=== PATIENT | male | born 1945 | race Caucasian/White ===

== ENCOUNTER 2017-04-27 09:57 | Emergency (ER) | payer OTHER ==
[~2017-04-27] VITALS: Ht 175.3 cm; Wt 96.6 kg
[2017-04-27] MEDS ORDERED: ASPIRIN325 PO (10:18)
[2017-04-27] MEDS ORDERED: SINGULAIR 10 MG10 M1 PO (10:18)
[2017-04-27] MEDS ORDERED: FINASTERIDE5 MG PO (10:18)
[2017-04-27 11:33] VITALS: BP 144/92
== END 2017-04-27 11:25 | disposition home or self-care (01) ==
LOC: ER 09:57
DX: S93.401A Sprain of unspecified ligament of right ankle, initial encounter (principal); S93.601A Unspecified sprain of right foot, initial encounter; Z87.891 Personal history of nicotine dependence; W11.XXXA Fall on and from ladder, initial encounter; Y93.89 Activity, other specified; Y92.89 Other specified places as the place of occurrence of the external cause; Y99.9 Unspecified external cause status

== ENCOUNTER → 2019-02-09 | Outpatient (CLI) | payer OTHER ==
[~2019-02-09] MED LIST: ASPIRIN325 PO; FINASTERIDE5 MG PO; SINGULAIR 10 MG10 M1 PO
== END ==
LOC: CAT 12:06
DX: Z13.6 Encounter for screening for cardiovascular disorders (principal); E78.00 Pure hypercholesterolemia, unspecified; Z82.49 Family history of ischemic heart disease and other diseases of the circulatory system

== ENCOUNTER → 2019-02-19 | Outpatient (CLI) | payer OTHER ==
--- NOTE | 2019-02-19 11:05 | 2DMMODE ---
[facility] [place] [place] [address] 2 D/M-MODE ECHOCARDIOGRAM Name: BLAIRASHLEY Bacilio Room #: REG [facility]#: [id number] ������������� Admission: 02/19/19 ������������� Attend Phys: Adrián Gay, Discharge: ��� ������������� ��� Date of : 41 Date of Service: 02/19/19 1104 �� Report #: [id number] �������� ��������������������������������������������[id number] THIS REPORT FOR: //name// APPROVED REPORT Study performed: 02/19/2019 10:07:36 EXAM: Comprehensive 2D, Doppler, and color-flow Echocardiogram Patient Location: Out-Patient Status: routine BSA: 2.14 HR: 71 bpm BP: 108/84 mmHg Rhythm: NSR Other Information Study Quality: Fair Indications Dyspnea 2D Dimensions RVDd: 33.94 mm IVSd: 10.62 (7-11mm) LVOT Diam: 24.00 (18-24mm) LVDd: 45.29 mm PWd: 11.06 (7-11mm) Ascending Ao: 44.88 (22-36mm) LVDs: 34.70 (25-40mm) Aortic Root: 44.52 mm Volumes Left Atrial Volume (Systole) Single Plane 4CH: 51.49 mL Single Plane 2CH: 56.77 mL LA ESV Index: 27.00 mL/m2 Aortic Valve AoV Peak Jaciel.: 2.54 m/s AO Peak Gr.: 25.88 mmHg LVOT Max P.05 mmHg AO Mean Gr.: 13.87 mmHg AO V2 Mean: 1.77 m/s LVOT Max V: 1.01 m/s AO V2 VTI: 63.05 cm DANILO Vmax: 1.79 cm2 Mitral Valve E/A Ratio: 0.9 [facility] [address] [place] [address] 2 D/M-MODE ECHOCARDIOGRAM Name: ASHLEY PINTO Room #: [facility]#: [id number] ������������� Admission: 02/19/19 ������������� Attend Phys: Adrián Gay, Discharge: ��� ������������� ��� Date of : 41 Date of Service: 02/19/19 1104 �� Report #: [id number] �������� ��������������������������������������������[id number] MV Decel. Time: 292.51 ms MV E Max Jaciel.: 0.78 m/s MV A Jaciel.: 0.90 m/s MV PHT: 84.83 ms IVRT: 83.04 ms Pulmonary Valve PV Peak Jaciel.: 1.28 m/s PV Peak Gr.: 6.51 mmHg Pulmonary Vein P Vein S: 0.61 m/s P Vein A: 0.29 m/s P Vein D: 0.49 m/s P Vein A Dur.: 110.7 msec P Vein S/D Ratio: 1.24 Tricuspid Valve TR Peak Jaciel.: 2.31 m/s RAP Estimate: 5.00 mmHg TR Peak Gr.: 21.36 mmHg PA Pressure: 26.00 mmHg Left Ventricle The left ventricle is normal size. There is normal LV segmental wall motion. Mild basal septal hypertrophy is present. Left ventricular systolic function is normal. LVEF is 55-60%. Mild diastolic dysfunction is present (impaired relaxation pattern). Right Ventricle The right ventricle is normal size. The right ventricular systolic function is normal. Atria The left atrium size is normal. The right atrium size is normal. Aortic Valve The aortic valve is difficult to visualize but appears to possibly be bicuspid. Mild calcification noted. Mild aortic regurgitation. There is mild valvular aortic stenosis. Calculated aortic valve area is 1.8 cm2 with maximum pressure gradient of 26 mmHg and mean pressure gradient of 14 mmHg. Mitral Valve The mitral valve is normal in structure. Trace mitral regurgitation. Tricuspid Valve The tricuspid valve is normal in structure. Trace tricuspid [facility] [address] [place] [address] 2 D/M-MODE ECHOCARDIOGRAM Name: ASHLEY PINTO Bacilio Room #: REG [facility]#: [id number] ������������� Admission: 02/19/19 ������������� Attend Phys: Adrián Gay, Discharge: ��� ������������� ��� Date of : 41 Date of Service: 02/19/19 1104 �� Report #: [id number] �������� ��������������������������������������������[id number] regurgitation. Estimated PAP is 26mmHg. Pulmonic Valve The pulmonary valve is normal in structure. Trace pulmonic regurgitation. Great Vessels Both the aortic root and ascending aorta are moderately dilated at 4.5cm. IVC is normal in size and collapses >50% with inspiration. Pericardium There is no pericardial effusion. <Conclusion> The left ventricle is normal size. LVEF is 55-60%. The aortic valve is difficult to visualize but appears to possibly be bicuspid. Mild calcification noted. Mild aortic regurgitation. There is mild valvular aortic stenosis. Calculated aortic valve area is 1.8 cm2 with maximum pressure gradient of 26 mmHg and mean pressure gradient of 14 mmHg. The mitral valve is normal in structure. Trace mitral regurgitation. The tricuspid valve is normal in structure. Trace tricuspid regurgitation. Estimated PAP is 26mmHg. The pulmonary valve is normal in structure. Trace pulmonic regurgitation. There is no pericardial effusion. Both the aortic root and ascending aorta are moderately dilated at 4.5cm. ��������������������������������������������� <ELECTRONICALLY SIGNED> ���������������������������������������� By: Huang Dale MD ��������������������������������������������� 02/19/19 1104 1104 1104 Huang Dale MD /INF
== END ==
LOC: CV 09:53
DX: I35.1 Nonrheumatic aortic (valve) insufficiency (principal)

== ENCOUNTER 2021-05-14 18:56 | Emergency (ER) | payer OTHER ==
[~2021-05-14] VITALS: Ht 177.8 cm; Wt 90.7 kg
--- NOTE | ~2021-05-14 | EMS ---
[facility] [address] [place] [address] EMS Patient Care Report Name: ASHLEY PINTO Room #: REG [facility] Carter#: [id number] Admission: 05/14/21 Attend Phys: Discharge: Date of : 41 Report #: [id number] THIS REPORT FOR: //name// Report Transmitted: 05/14/2021 19:49 EMS Care Summary [place], [place]/[facility] Incident [id number] @ 05/14/2021 19:05 Incident Location [address] [place] [address] Patient GRECIA DUONG Male, 76 Years 1945 Patient Address [address] [place] [id number] Patient History Chronic Obstructive Pulmonary Disease (COPD),Dementia,Hypertension (HTN),Smoking,Hyperlipidemia,Gastro-Esophageal Reflux Disease (GERD),Cardiac Condition - Other,Atrial Fibrillation,Sepsis,Alcohol Abuse,Edema, Patient Allergies Aspirin,Ibuprofen, Patient Medications Lipitor, Terazosin, Magnesium Oxide, Protonix, Lasix, Coreg, Multivitamin, Clopidogrel, Zyrtec, Amiodarone, Plavix, Chief Complaint weakness Disposition Transported No Lights/[place] Dis[place] Reason Sick Person Transported To [facility] [address] [place] [address] EMS Patient Care Report Name: [facility]SHLEY PINTO [id number] Admission: 05/14/21 Attend Phys: Discharge: Date of : 41 Report #: [id number] Arrived on scene use lock box to gain entry. PT found on the floor of bathroom near wheelchair. PT stated he had fell attempting to use the restroom but is uninjured and not on any blood thinners. Pt stated he has a history of falling but feels increasingly weak today and would like to got get checked out. We assisted Pt to stair chair and on to stretcher vitals where take and transport to hospital without incident or change in condition. pt was team lifted to bed and handrails up. report given to nurse. Initial Vitals @19:42P: 80,R: 16,BP: 142/93,Pain: 0/10,GCS: 15,CO: 2,SpO2: 97,Revised Trauma: 12, @19:47P: 84,R: 16,BP: 140/90,Pain: 0/10,GCS: 15,CO: 2,SpO2: 97,Revised Trauma: 12, Assessments @19:19MENTAL:Place Oriented,Time Oriented,Event Oriented,Person Oriented,SKIN:HEENT:Head/Face: No Abnormalities,Eyes: No Abnormalities,Neck/Airway: No Abnormalities,LUNG SOUNDS:General: No Abnormalities,Left Upper: No Abnormalities,Right Upper: No Abnormalities,Left Lower: No Abnormalities,Right Lower: No Abnormalities,ABDOMEN:General: No Abnormalities,Left Upper: No Abnormalities,Right Upper: No Abnormalities,Left Lower: No Abnormalities,Right Lower: No Abnormalities,PELVIS//GI:No Abnormalities,EXTREMITIES:Left Arm: Weakness,Right Leg: Weakness,Right Arm: Weakness,Left Leg: Weakness,PULSE:NEURO:No Abnormalities, Impression Generalized Weakness Procedures @19:19BLS AssessmentResponse: Unchanged@19:20C-Spine ClearanceResponse: Unchanged Timeline 19:04,Call Received 19:04,Dispatch Notified 19:05,Dispatched 19:06,En Route 19:15,On Scene 19:19,At Patient 19:19,BLS Assessment,Response: Unchanged 19:20,C-Spine Clearance,Response: Unchanged 19:42,BP: 142/93 M,PULSE: 80,RR: 16 R,SPO2: 97 Ox,ETCO2: ,BG: ,PAIN: 0,GCS: 15, 19:45,Depart Scene 19:47,BP: 140/90 M,PULSE: 84,RR: 16 R,SPO2: 97 Ox,ETCO2: ,BG: ,PAIN: 0,GCS: 15, 19:53,At Destination 19:59,Call Closed [address] [address] EMS Patient Care Report Name: ASHLEY PINTO Room #: REG [facility].#: [id number] Admission: 05/14/21 Attend Phys: Discharge: Date of : 41 Report #: [id number] Disclaimer v1.1 Copyright 2020 [employer] This EMS Care Summary contains data elements from the applicable legal record (which may be displayed differently). It is designed to provide pertinent information for the following purposes: continuity of care, clinical quality, and state data reporting. The complete legal record is available to ED staff and administrators of the receiving hospital in ES's Patient Tracker. All data is provided "as is."
[~2021-05-14 18:56] MED LIST changes: +CIPRO500 M1 PO; +FLAGYL500 M1 PO; +HYDROCHLOROTHIA25 M1 PO; +ONDANSETRON HCL4 M2 PO
[2021-05-14] MEDS ORDERED: LISINOPRIL10 MG PO (19:47)
[2021-05-14] MEDS ORDERED: CRESTOR10 MG PO (19:48)
[2021-05-14 20:32] LABS: HEMATOCRIT 39.5 % (42.0-52.0); HEMOGLOBIN 13.3 gm/dL (14.0-18.0); MCH 29.1 pg (26.0-34.0); MCHC 33.8 g/dL (28.0-37.0); MCV 85.9 fL (80.0-100.0); RBC 4.59 mil/uL (4.50-6.00); RDW 14.3 % (10.5-14.5); WBC 10.1 thou/uL (4.0-11.0)
[2021-05-14 20:42] LABS: CALCIUM 8.8 mg/dL (8.5-10.1); CREATININE 1.1 mg/dL (0.7-1.3); POTASSIUM 3.9 mmol/L (3.5-5.1)
[2021-05-14 20:48] LABS: ALBUMIN 2.4 g/dL (3.4-5.0); TOTAL BILIRUBIN 0.8 mg/dL (0.2-1.0); TOTAL PROTEIN 6.5 g/dL (6.4-8.2)
[2021-05-14] MEDS ORDERED: NORCO5 PO (21:46)
[2021-05-14 22:16] VITALS: BP 119/71
== END 2021-05-14 22:18 | disposition home or self-care (01) ==
LOC: ER 18:56
PROVIDERS: Nurse Practitioner Family
DX: R10.32 Left lower quadrant pain (principal); G89.29 Other chronic pain; I10 Essential (primary) hypertension; E78.00 Pure hypercholesterolemia, unspecified; Z79.899 Other long term (current) drug therapy; Z87.891 Personal history of nicotine dependence

== ENCOUNTER 2021-05-17 06:23 | Inpatient (IN) | payer OTHER ==
[~2021-05-17] VITALS: Ht 177.8 cm; Wt 90.6 kg
[~2021-05-17 06:23] MED LIST changes: +CRESTOR10 MG PO; +LISINOPRIL10 MG PO; +NORCO5 PO
[2021-05-17 06:26] VITALS: BP 114/53
[2021-05-17] MEDS ORDERED: BUDESONIDE EC3 MG PO (06:30)
[2021-05-17] MEDS ORDERED: HYDROCODON-ACE1 EAC7 PO (06:30)
[2021-05-17] MEDS ORDERED: ROSUVASTATIN CAL5 MG PO (06:31)
[2021-05-17 07:00] LABS: ABSOLUTE NEUTROPHILS 8.3 thou/uL (1.4-8.2); BASOPHILS 0.1 % (0.0-2.0); EOSINOPHILS 0.7 % (0.0-3.0); HEMATOCRIT 39.8 % (42.0-52.0); LYMPHOCYTES 8.4 % (24.0-44.0); MCH 28.5 pg (26.0-34.0); MCHC 32.7 g/dL (28.0-37.0); MONOCYTES 9.7 % (1.0-8.0); POLYS 81.1 % (36.0-66.0); RBC 4.57 mil/uL (4.50-6.00); RDW 14.4 % (10.5-14.5); WBC 10.3 thou/uL (4.0-11.0)
[2021-05-17 07:05] LABS: CALCIUM 8.9 mg/dL (8.5-10.1); CREATININE 1.4 mg/dL (0.7-1.3); POTASSIUM 3.7 mmol/L (3.5-5.1)
--- NOTE | 2021-05-17 07:05 | NUR ---
TOOK OVER CARE FROM ALVARO JOHNSON AT THIS TIME
[2021-05-17 07:10] LABS: PLATELET COUNT 500 thou/uL (150-400)
[2021-05-17 07:11] LABS: ALBUMIN 2.3 g/dL (3.4-5.0); TOTAL PROTEIN 6.6 g/dL (6.4-8.2)
[2021-05-17 08:18] LABS: URINE BILIRUBIN NEGATIVE (Negative); URINE BLOOD NEGATIVE (Negative); URINE CLARITY CLEAR; URINE COLOR YELLOW; URINE GLUCOSE-RANDOM* NEGATIVE (Negative); URINE KETONES NEGATIVE (Negative); URINE LEUKOCYTES-REFLEX NEGATIVE (Negative); URINE NITRITE-REFLEX NEGATIVE (Negative); URINE PROTEIN (DIPSTICK) NEGATIVE (Negative)
[2021-05-17 09:25] VITALS: BP 108/65
[2021-05-17 09:53] VITALS: BP 112/69
[2021-05-17 10:45] VITALS: BP 117/71
--- NOTE | 2021-05-17 12:22 | NUR ---
ASSUMED PT CARE AT 1045 FROM ED. PT IS ALERT & ORIENTED X4. PT HAS IV SITE ON RAC RUNNING NS @80ML/HR. PT IS ON ROOM AIR. FINISHED ADMISSION. INFORMED DR BOYKIN THAT PT IS AT THE BEDSIDE. PT C/O OF PAIN ON LLQ ABDOMEN 3/1O. LAST BM WAS TODAY. PT AT THE BEDSIDE. ORDERED CLEAR LIQUID DIET PER DR BOB. NO C/O OF NAUSEA AND VOMITING. WILL CONTINUE TO MONITOR PT. FOLLOW POC.
[2021-05-17 15:10] VITALS: BP 107/58
[2021-05-17 19:33] VITALS: BP 110/63
[2021-05-18 04:08] VITALS: BP 115/65
[2021-05-18 04:58] LABS: MCH 29.3 pg (26.0-34.0); MCHC 33.9 g/dL (28.0-37.0); MCV 86.4 fL (80.0-100.0); RBC 3.58 mil/uL (4.50-6.00); RDW 13.8 % (10.5-14.5); WBC 7.7 thou/uL (4.0-11.0)
[2021-05-18 05:23] LABS: HEMOGLOBIN 10.5 gm/dL (14.0-18.0)
[2021-05-18 07:16] VITALS: BP 103/59
--- NOTE | 2021-05-18 07:34 | NUR ---
UPON SHIFT ASSESSMENT, PT AOX4. PT REPORTS 2/10 PAIN IN LLQ OF ABDOMEN. PT RECEIVING PRN PO NORCO Q6HR AND PRN IV MORPHINE Q4HR. PT DENIES SOB WHILE ON ROOM AIR. PT TOLERATING PO INTAKE OF FLUIDS AND REGULAR DIET WITHOUT ISSUE. PT WITHOUT NAUSEA OR EMESIS. PT AMBULATING INDEPENDENTLY IN ROOM AND TO BATHROOM. PT WITH FREQUENT STOOLS, STOOLS FORMED, INTERMITTENTLY WITH BLOODY STOOLS. SENSATION INTACT, CAPILLARY REFILL LESS THAN 3SEC, PERIPHERAL PULSES PALPABLE IN ALL EXTREMITIES. PT ENCOURAGED TO NOTIFY STAFF FOR ALL NEEDS, CALL LIGHT WITHIN REACH, BED LOCKED IN LOWEST POSITION, FREQUENT MONITORING WILL CONTINUE.
--- NOTE | 2021-05-18 10:26 | NUR ---
ORDERS FOR EVAL AND TREAT HOWEVER Pt UP AD CHARLIE. SPOKE WITH Pt WHO STATES HE IS HAVING NO DIFFICULTY WITH MOBILITY, BALANCE OR STRENGTH AND THAT HE DOES NOT NEED P.T. Pt DECLINING A FORMAL P.T. EVAL BUT HAS BEEN GETTING UP ON HIS OWN WITH DIFFICULTY
--- NOTE | 2021-05-18 14:34 | NUR ---
PT ADMITTED RELATED TO [facility]. CM REVIEWED CHART AND SPOKE WITH CARE TEAM. CM MET WITH PT AT BEDSIDE THIS DAY. PT APPEARED TO BE A&0 X4. CM ROLE INTRODUCED. PT INDICATED HE RESIDES IN A HOUSE WITH HIS SPOUSE WITH 2 STEPS TO ENTER AND 2 FULL FLIGHTS INSIDE ALTHOUGH PT INDICATED HE STAY'S ON MAIN LEVEL WITH ALL NEEDS. 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 PT INDICATED NO HH HX. CM FOLLOWING REGARDING DC PLANNING. PT ANTICIPATES RETURNING HOME WITH NO NEEDS ONCE MEDICALLY STABLE.
[2021-05-18 15:50] VITALS: BP 107/70; BP 132/82
--- NOTE | 2021-05-18 19:38 | NUR ---
A/O, calm and cooperative. got up to the bathroom independently.
[2021-05-18 20:10] VITALS: BP 114/71
--- NOTE | 2021-05-19 04:26 | NUR ---
ASSUMED PT CARE THIS PM. PT IS ALERT AND ORIENTED X4. PT IS PLEASANT AND COOPERATIVE. PT C/O WHICH WAS MANAGED BY PRN PAIN MEDS. VS ARE WITHIN NORMAL RANGE AND MEDS WERE GIVEN PER EMAR ORDERS. PT DID NOT VERBALIZE ANY CONCERNS.FALL PRECAUTIONS IN PLACE. WILL CONTINUE TO MONITOR.
[2021-05-19 10:36] VITALS: BP 125/75
[2021-05-19] MEDS ORDERED: METRONIDAZOLE500 M4 PO (11:45)
[2021-05-19] MEDS ORDERED: PREDNISONE 10 M10 MG PO (11:45)
[2021-05-19] MEDS ORDERED: FLAGYL500 M1 PO (11:45)
--- NOTE | 2021-05-19 15:13 | NUR ---
CARE TEAM INDICATED THAT PT IS MEDICALLY STABLE TO DC HOME THIS DAY TO SELF CARE. NO OTHER CM INTERVENTION INDICATED. CASE CLOSED.
== END 2021-05-19 15:48 | disposition home or self-care (01) | DRG 391 ==
LOC: ER 06:23 → EROBS 09:20 → 4W 09:20
PROVIDERS: Emergency Medicine; Internal Medicine; ADMIT Family Medicine; ATTEND Family Medicine
DX: K52.9 Noninfective gastroenteritis and colitis, unspecified (principal); E43 Unspecified severe protein-calorie malnutrition; I10 Essential (primary) hypertension; E78.00 Pure hypercholesterolemia, unspecified; D64.9 Anemia, unspecified; E78.5 Hyperlipidemia, unspecified; K21.9 Gastro-esophageal reflux disease without esophagitis; N40.0 Benign prostatic hyperplasia without lower urinary tract symptoms; K63.89 Other specified diseases of intestine; Z20.822 Contact with and (suspected) exposure to COVID-19; Z79.899 Other long term (current) drug therapy; Z87.891 Personal history of nicotine dependence; Z79.1 Long term (current) use of non-steroidal anti-inflammatories (NSAID); Z68.28 Body mass index [BMI] 28.0-28.9, adult
CPT/HCPCS: 10040

== ENCOUNTER 2021-06-01 12:13 | Inpatient (IN) | payer OTHER ==
[~2021-06-01] VITALS: Ht 177.8 cm; Wt 98.2 kg
[~2021-06-01 12:13] MED LIST changes: +BUDESONIDE EC3 MG PO; +HYDROCODON-ACE1 EAC7 PO; +METRONIDAZOLE500 M4 PO; +PREDNISONE 10 M10 MG PO; +ROSUVASTATIN CAL5 MG PO
[2021-06-01 12:14] VITALS: BP 97/67
[2021-06-01 15:25] LABS: ABSOLUTE NEUTROPHILS 8.8 thou/uL (1.4-8.2); BASOPHILS 0.1 % (0.0-2.0); HEMATOCRIT 33.4 % (42.0-52.0); HEMOGLOBIN 11.3 gm/dL (14.0-18.0); LYMPHOCYTES 3.2 % (24.0-44.0); MCH 28.8 pg (26.0-34.0); MCHC 33.8 g/dL (28.0-37.0); MCV 85.2 fL (80.0-100.0); MONOCYTES 6.7 % (1.0-8.0); PLATELET COUNT 326 thou/uL (150-400); RBC 3.92 mil/uL (4.50-6.00); RDW 14.6 % (10.5-14.5); WBC 9.8 thou/uL (4.0-11.0)
[2021-06-01 15:38] LABS: CALCIUM 8.6 mg/dL (8.5-10.1); CREATININE 1.2 mg/dL (0.7-1.3); POTASSIUM 5.1 mmol/L (3.5-5.1)
[2021-06-01 15:44] LABS: TOTAL BILIRUBIN 1.1 mg/dL (0.2-1.0); TOTAL PROTEIN 5.7 g/dL (6.4-8.2)
[2021-06-01 18:13] VITALS: BP 110/67
[2021-06-01 19:41] VITALS: BP 112/64
--- NOTE | 2021-06-02 04:19 | NUR ---
ASSUMED CARE OF PT AT 1900. BEDSIDE REPORT RECIEVED. ANTONIO ASSESSMENT COMPLETE. ADMISSION INFORMATION COMPLETE. MEDS ADMINISTERED ORERED. ORIENTED PT TO THIS UNIT AND ROOM. FALL RISK PRECAUTIONS EDUCATED TO PT, VERBALIZED UNDERSTANDING. C/O ABDOMINAL AND RECTAL PAIN. UP C SBA TO BATHROOM. IVF INFSING ORDERED. ALL NEEDS MET. CALL LIGHT IN REACH.
[2021-06-02 04:30] VITALS: BP 112/72
[2021-06-02 04:35] LABS: HEMATOCRIT 31.9 % (42.0-52.0); HEMOGLOBIN 10.6 gm/dL (14.0-18.0); MCH 28.6 pg (26.0-34.0); MCHC 33.1 g/dL (28.0-37.0); MCV 86.5 fL (80.0-100.0); RBC 3.69 mil/uL (4.50-6.00); RDW 14.9 % (10.5-14.5); WBC 8.3 thou/uL (4.0-11.0)
[2021-06-02 04:42] LABS: ALBUMIN 1.7 g/dL (3.4-5.0); CALCIUM 8.1 mg/dL (8.5-10.1); POTASSIUM 4.7 mmol/L (3.5-5.1); TOTAL BILIRUBIN 0.8 mg/dL (0.2-1.0); TOTAL PROTEIN 5.1 g/dL (6.4-8.2)
--- NOTE | 2021-06-02 08:09 | NUR ---
I CONCUR WITH THE ASSESSMENT AND NOTE BY MITCHELL DIEGO.
--- NOTE | 2021-06-02 11:22 | NUR ---
ASSESSMENT: CM REVIEWED CHART AND SPOKE WITH PATIENT. PT IS ALERT AND ORIENTED X4. PT WAS ADMITTED WITH ABDOMINAL PAIN AND HAS HX OF ULCERATIVE COLITIS. PT IS CURRENTLY ON IV STEROIDS. PT REPORTS THAT HE LIVES IN A HOUSE WITH HIS . PT REPORTS ONE STEP TO ENTER THE HOME AND NO STEPS ONCE INSIDE. PT REPORTS THAT HE HAS NOT HAD HH IN THE PAST OR BEEN TO A SNF. PTS PCP IS DR. BOYKIN. PT REPORTS THEY DO HAVE A WALK IN SHOWER WITH A BUILT IN BENCH. CM DISCUSSED ROLE. PT DOES NOT ANTICIPATE HAVING ANY NEEDS FROM CM. LIKELY DISCHAGRE HOME WITH NO NEEDS AT THE TIME OF DISCHARGE. CM WILL CONTINUE TO FOLLOW.
[2021-06-02 16:02] VITALS: BP 125/83
--- NOTE | 2021-06-03 02:30 | NUR ---
ASSUMED CARE OF PT AT 1930. REPORT RECIEVED. ANTONIO ASSESMENT COMPLETE. PT HAVE ONGOING LLQ ABDOMINAL PAIN. MEDS AND PAIN MEDS GIVEN ORDERED, REFUSED SUPPOSITORY. SUPPLIES FOR STOOL SAMPLE COLELCTED AND SET IN BATHROOM TO WHEN NEXT STOOL OCCURS. NEW IV PLACED IN R HAND. SECURED C TEGADERM AND COABND. PT HAS INDEPENDENT BED MOBILITY. ALL NEEDS MET, HOURLY ROUNDING ONGOING, CALL LIGHT IN REACH.
[2021-06-03 07:28] VITALS: BP 130/87
[2021-06-03 15:19] VITALS: BP 126/80
--- NOTE | 2021-06-03 18:49 | NUR ---
ASSUMED PT CARE AROUND 0720. PT A X O 4, RA. 1 X PERSON ASST FOR SAFETY, URGE TO GO TO RESTROOM. IV RT HAND/ FLUIDS INFUSING. PAIN OF 5 NOTED, REFUSES PAIN MEDS IT IS MORE UPSETING HIS DTOMACH. FALL PRECT IN PLACE. HOURLY ROUNDING DONE.
[2021-06-03 19:54] VITALS: BP 115/84
--- NOTE | 2021-06-04 05:55 | NUR ---
Pt. rested quietly at intervals during the night when checked on during frequent rounds. He has had two bloody loose stools during the shift. He c/o abdominal pain, but does not want any pain meds. Pt. reports passing some gas which has been helping reduce some of his pain. Pt. voiced that he has been having bloody loose stools the last two weeks. Up to the bath- room with standby assistance. Bed alarm is on.
[2021-06-04 07:23] VITALS: BP 115/71
[2021-06-04 17:38] VITALS: BP 117/78
[2021-06-04 19:08] VITALS: BP 114/71
--- NOTE | 2021-06-05 00:19 | NUR ---
PT ALERT AND ORIENTED X4. VSS AFEBRILE. HRR. LCTA UNLABORED ON RA. DEIED NEED FOR PAIN MEDS AT TIME OF ASSESSMENT. HE IS SLEEPING QUIETLY. NO S/S DISTRESS.
[2021-06-05 04:19] VITALS: BP 106/66
--- NOTE | 2021-06-05 06:25 | NUR ---
PT SLEEPING . NO CHANGES IN ASSESMENT. VSS. AFEBRILE. PT STILL HAVING MODERATE SIZED LOOSE BROWN BLOODY STOOLS.
[2021-06-05 07:19] VITALS: BP 118/75
[2021-06-05 15:24] VITALS: BP 118/79
[2021-06-05 19:22] VITALS: BP 119/81
[2021-06-05 23:30] VITALS: BP 115/79
--- NOTE | 2021-06-05 23:38 | NUR ---
Assumed pt care at 1900. Pt A/OX4,VSS. C/o excruciating abd pain LOP 06/04,requested to go to the bathroom asisted to BR with no results. Medicated with Morphine 2mg with no relief reported. notified, N.O Morphine 4MG X1,CT Abd/Pelvis w/contrast stat and contact GI. Pt and updated. Pt medicated with Morphine again and went down for CT, Radiology called with results pt has a perforated upper sigmoid colon as well free air in the diaphragm. Dr. Arce GI contacted,advised to let know. contacted and updated on results advised to consult surgery stat for urgent surgery. Tiki/pt updated on findings and plans for surgery and agreeable with it. Page out to twice @[phone] returned call updated on pt's condition;he stated he'll come in to do surgery. Pt placed on telemetry,VSS. in at this time and just talked to the pt and pt is agreeable to go ahead with surgery. Will continue to monitor pt. updated. Page out
[2021-06-06] VITALS (70 sets, daily range): BP systolic 30–151; BP diastolic 11–106
--- NOTE | 2021-06-06 03:49 | NUR ---
0345 - DR MESA CALLED ICU TO PROVIDE ORDERS. PT STILL IN PACU AT THIS TIME.
[2021-06-06 07:46] LABS: HEMOGLOBIN 9.3 gm/dL (14.0-18.0)
[2021-06-06 07:59] LABS: INR 1.28; PROTIME 13.8 Seconds (10.5-12.1)
--- NOTE | 2021-06-06 08:32 | NUR ---
RECEIVED REPORT FROM PROCESSING ARCHIVIST. PT ARRIVED TO ICU ROOM AT 0500. PT NOTED TO BE VERY PALE, WITH COOL, CLAMMY SKIN. PT VERY DROWSY BUT ARROUSABLE. HE C/O ABDOMINAL PAIN. DENIED ANY NAUSEA. COLOSTOMY IN PLACE. MIDLINE ABDOMINAL INCISION INTACT. PT VERY HYPOTENSIVE UPON ARRIVAL TO ICU. KIMBERLEY GTT WAS ALREADY INFUSING FROM SURGERY. INCREASED KIMBERLEY GTT TO MAX DOSE. CALLED DR MESA - UPDATED HIM ON PT STATUS AND HYPOTENSION. ORDERS RECEIVED TO GIVE 1L NS BOLUS AND OBTAIN LABS. BOLUS GIVEN. BP IMPROVED SLIGHTLY. LAB AND NURSING STAFF HAD DIFFICULTY OBTAINING LABS. UPDATED DR MESA. DR MESA ORDERED FOR PT TO RECEIVE 1 UNIT RBCS. REPORT GIVEN TO ONCOMING NURSE.
--- NOTE | 2021-06-06 08:46 | NUR ---
STAT PAGES TO ,ANESTHESIA, RE:URGENT NEED FOR CENTRAL LINE.STAT PAGE OVERHEAD FOR ANY GENERAL SURGEON. PRODUCTION HAND UP PRIOR,ATTEMPTED SEV X'S E.J. W/O SUCCESS. E.R.PHYSICIAN & IVT BOTH ARRIVED AT SAME TIME. IVT PLACED RT CENTRAL LINE. ATTEMPTING LT RADIAL GABY..PT CHANGED TO 100% NRB MASK PRIOR TO THIS.REMAINS AWAKE,LETHARGIC,EXTREMELY PALE W COOL EXTREM'S. WARM BLNKETS APPLED.JAMES BOYKIN,Basilio,AJAY ALL AT BEDSIDE EARLIER.VW,CN
--- NOTE | 2021-06-06 08:50 | NUR ---
0710 - CALLED PT'S BRUNO TO UPDATE HER ON PT'S STATUS POST-OP. SHE ALSO GAVE CONSENT FOR CENTRAL LINE PLACEMENT.
[2021-06-06 09:30] LABS: BE(vivo) -13.3 mmol/L (-2 to +3); HCO3 9.3 mmol/L (22.0-26.0); PO2 225.2 mmHg (80.0-100.0); pH 7.407 (7.360-7.450); sO2 99.5 % (92.0-98.0)
[2021-06-06 09:31] LABS: PCO2 15.1 mmHg (35.0-45.0)
[2021-06-06 09:34] LABS: HEMOGLOBIN 9.3 gm/dL (14.0-18.0); RBC 3.38 mil/uL (4.50-6.00)
[2021-06-06 09:36] LABS: HEMATOCRIT 29.4 % (42.0-52.0); MCH 27.5 pg (26.0-34.0); MCHC 31.7 g/dL (28.0-37.0); MCV 86.8 fL (80.0-100.0); RDW 14.8 % (10.5-14.5); WBC 18.6 thou/uL (4.0-11.0)
[2021-06-06 09:58] LABS: CALCIUM 7.2 mg/dL (8.5-10.1); CREATININE 1.8 mg/dL (0.7-1.3); POTASSIUM 5.5 mmol/L (3.5-5.1)
[2021-06-06 10:44] LABS: ABSOLUTE NEUTROPHILS 16.7 thou/uL (1.4-8.2); METAMYELOCYTES 6 %; MYELOCYTES 1 %
[2021-06-06 10:45] LABS: PLATELET COUNT 16 thou/uL (150-400); PLATELET ESTIMATE MARKEDLY DECREASED
--- NOTE | 2021-06-06 11:29 | O ---
[facility] [place] [address] OPERATIVE REPORT Name: ASHLEY PINTO Room #: 242-P ADM IN M.R.#: [id number] Admission: 06/01/21 Attend Phys: Adrián Gay MD Discharge: Date of : 41 Report #: [id number] THIS REPORT FOR: cc: Adrián Gay MD, Neal A. MD Patterson,Tha Colbert MD ~ DATE OF SERVICE: 06/06/2021 PREOPERATIVE DIAGNOSIS: Perforated sigmoid colon. POSTOPERATIVE DIAGNOSIS: Perforated sigmoid colon. OPERATION: 1. Exploratory laparotomy with left colectomy, sigmoidectomy with end colostomy. 2. Takedown of splenic flexure SURGEON: Tha Al MD ANESTHESIA: General. ESTIMATED BLOOD LOSS: 300 mL. SPECIMENS: Left colon and sigmoid colon. DRAINS: None. DESCRIPTION OF PROCEDURE: After informed consent was obtained, the patient was brought to the operating room and placed supine. SCDs were placed and working, preoperative antibiotics were administered, general anesthesia was induced. The Logan catheter was placed and the abdomen was prepped and draped in the usual sterile fashion. Midline laparotomy incision was made from approximately 2 cm above the umbilicus down to the pubis. Fascia was incised in the midline and a retractor was placed. Immediately upon entering the abdomen, I could see fecal matter. This was emanating from the sigmoid colon. There was an obvious perforation in the sigmoid colon. As much of the stool was suctioned out as possible. The sigmoid colon and the distal left colon were very friable. They were adherent to the left lateral side wall. There was obvious chronic inflammation. I was able to dissect down distally and find some relatively normal-appearing colon. This was about the level of the rectosigmoid. I then stapled this off with a PREETI contour blue load stapler. The mesentery of the sigmoid colon was then ligated using the LigaSure device. There was excellent hemostasis. Sigmoid colon and left colon were mobilized medially by taking down the lateral attachments. This was a very scarred and not a well-defined given the chronic inflammation. I was able to dissect up to [facility] [address] [place] [address] OPERATIVE REPORT Name: ASHLEY PINTO Bacilio Room #: 242-P [facility] IN M.R.#: [id number] Admission: 06/01/21 Attend Phys: Adrián Gay MD Discharge: Date of : 41 Report #: [id number] the splenic flexure. The splenic flexure was then taken down. Splenocolic ligament was incised with the EnSeal device. Lateral attachments of the splenic flexure were taken down with the LigaSure as well. This allowed for medial mobilization of the splenic flexure. The gastrocolic ligament was incised also with EnSeal in this area to allow for full medial mobilization of the splenic flexure. I was able to dissect to approximately the level of the distal transverse colon where the colon again appeared relatively normal. The affected segment of the colon that was removed was very friable. It tore just with grasping it. The mesentery was again ligated using LigaSure device. This allowed for excision and removal of the left colon and sigmoid colon. A hole was made in the left lower quadrant of the abdomen through the rectus sheath. The colon was then brought out through this area using Mcconnell clamps. The abdomen was copiously irrigated with approximately 10 liters of warm normal saline. I was able to wash out all 4 quadrants. I examined the small bowel and there were no perforations. The right colon appeared relatively normal as well. The fascia was then closed in the midline using #1 looped PDS. The skin was closed with anupam. Cinthya type colostomy was then fashioned using a 4-0 Vicryl. Ostomy appliance was placed as well as a sterile dressing. COMPLICATIONS: None. DISPOSITION: The patient was taken to PACU and then ICU in guarded condition. <ELECTRONICALLY SIGNED> By: Tha Al MD 06/06/21 1129 0850 0904 Tha Al MD /adan
--- NOTE | 2021-06-06 11:52 | NUR ---
A RIGHT IJ CENTRAL LINE WAS PLACED STAT IN ICU PER HOSPITAL POLICY AFTER A BEDSIDE TIMEOUT WAS COMPLETED. THE 25CM LINE ADVANCED WITHOUT DIFFICULTY. THE LINE WAS SECURED AND A STAT CHEST XRAY ORDERED. DR. RODRIGUEZ VISUALIZED THE CHEST XRAY AND RELEASED THE LINE FOR USE
--- NOTE | 2021-06-06 12:20 | 2DMMODE ---
[facility] [address] [employer] [place] [address] 2 D/M-MODE ECHOCARDIOGRAM Name: ASHLEY PINTO Room #: 242-P ADM IN M.R.#: [id number] Admission: 06/01/21 Attend Phys: Adrián Gay MD Discharge: Date of : 41 Report #: [id number] THIS REPORT FOR: cc: Adrián Gay MD, Neal A. MD Park, Jin S. MD ~ APPROVED REPORT Study performed: 06/06/2021 10:55:50 EXAM: Comprehensive 2D, Doppler, and color-flow Echocardiogram Patient Location: ICU Room #: 242 Status: routine BSA: 2.03 HR: 75 bpm BP: 120/82 mmHg Rhythm: NSR Other Information Indications Aortic Valve Disease Dilated aorta 2D Dimensions IVSd: 10.04 (7-11mm) LVOT Diam: 24.79 (18-24mm) LVDd: 45.48 mm PWd: 10.37 (7-11mm) Ascending Ao: 45.95 (22-36mm) LVDs: 28.12 (25-40mm) Aortic Root: 39.34 mm Aortic Valve AoV Peak Jaciel.: 2.84 m/s AO Peak Gr.: 32.29 mmHg LVOT Max P.66 mmHg AO Mean Gr.: 10.64 mmHg LVOT Mean P.73 mmHg AO V2 Mean: 1.33 m/s LVOT Max V: 0.96 m/s AO V2 VTI: 66.15 cm LVOT Mean V: 0.57 m/s DANILO (VTI): 1.68 cm2 LVOT V1 VTI: 22.97 cm DANILO Vmax: 1.62 cm2 SV (LVOT): 110.81 mL Pulmonary Valve [facility] [address] [place] [address] 2 D/M-MODE ECHOCARDIOGRAM Name: ASHLEY PINTO Room #: 242-[facility] IN [facility].#: [id number] Admission: 06/01/21 Attend Phys: Adrián Gay, Discharge: Date of : 41 Report #: [id number] PV Peak Jaciel.: 0.86 m/s PV Peak Gr.: 2.97 mmHg Tricuspid Valve TR Peak Jaciel.: 3.08 m/s TR Peak Gr.: 37.93 mmHg PA Pressure: 38.00 mmHg Left Ventricle The left ventricle is normal size. Regional wall motion abnormalities cannot be excluded. There is normal left ventricular wall thickness. The left ventricular systolic function is normal. LVEF is 60%. This study is not technically sufficient to allow evaluation of the LV diastolic function. Right Ventricle The right ventricle is normal size. Right ventricular systolic function is grossly normal. Atria Left atrium is at the upper limits of normal. The right atrium size is normal. Aortic Valve The aortic valve is normal in structure. Aortic valve is calcified. No aortic regurgitation is present. There is no aortic valvular stenosis. Mitral Valve The mitral valve is normal in structure. Trace mitral regurgitation. No evidence of mitral valve stenosis. Tricuspid Valve The tricuspid valve is normal in structure. There is trace tricuspid regurgitation. Estimated PAP 38 mmHg plus the righ atrial pressure. Pulmonic Valve Pulmonic valve is not well visualized. Great Vessels Aortic root is dilated at 4.7 cm The ascending aorta is dilated at 4.7 cm The inferior vena cava is not well visualized. Pericardium There is no pericardial effusion. [facility] [place] [address] 2 D/M-MODE ECHOCARDIOGRAM Name: ASHLEY PINTO Bacilio Room #: 242-P [facility] IN M.R.#: [id number] Admission: 06/01/21 Attend Phys: Adrián Gay, Discharge: Date of : 41 Report #: [id number] <Conclusion> The left ventricle is normal size. There is normal left ventricular wall thickness. The left ventricular systolic function is normal. The right ventricle is normal size. Left atrium is at the upper limits of normal. Aortic valve is calcified. Trace mitral regurgitation. There is trace tricuspid regurgitation. Estimated PAP 38 mmHg plus the righ atrial pressure. <ELECTRONICALLY SIGNED> By: Kailash Son MD 06/06/21 1220 122 1220 Kailash Son MD /LIANE
--- NOTE | 2021-06-06 12:35 | NUR ---
75 year old males admitted to ICU s/p Exploratory laparotomy with left colectomy/sigmoid colectomy with colostomy after complaints in the ED on 06-01-21 for abdominal pain. Upon discovery in early AM on 06-05-21 of perforated sigmoid colon s/p resection and colostomy Hypotensive on pastora max strength- needs 1 U PRBCs. discussed with GI then sent to surgery. Afterwards sent to ICU for care. Patient does live at home with spouse (Tiki Smart at [phone]) with one step to enter and has a walk in shower and bench built in. Upon medical stabilization therapy evaluations will be put in to determine for CM needs for the next level of care for discharge planning.
[2021-06-06 14:00] LABS: RDW 15.2 % (10.5-14.5)
[2021-06-06 14:02] LABS: HEMATOCRIT 22.2 % (42.0-52.0); MCH 28.3 pg (26.0-34.0); MCHC 32.5 g/dL (28.0-37.0); MCV 87.2 fL (80.0-100.0); RBC 2.54 mil/uL (4.50-6.00); WBC 14.2 thou/uL (4.0-11.0)
[2021-06-06 14:08] LABS: PLATELET COUNT 10 thou/uL (150-400)
[2021-06-06 14:12] LABS: HEMOGLOBIN 7.2 gm/dL (14.0-18.0)
[2021-06-06 14:19] LABS: CREATININE 1.9 mg/dL (0.7-1.3)
[2021-06-06 14:32] LABS: POTASSIUM 4.1 mmol/L (3.5-5.1)
[2021-06-06 15:03] LABS: ABSOLUTE NEUTROPHILS 13.2 thou/uL (1.4-8.2); PLATELET ESTIMATE DECREASED
--- NOTE | 2021-06-06 15:03 | NUR ---
PT CAME BACK FROM OR AROUND 5:00AM THIS MORNING. PER RN SHIFT REPORT, THIS PT HYPOTENSIVE ON ARRIVAL TO ICU. PT HAD ONE PERIPHERAL IV. SHIFT REPORT RECEIVED FROM ALVARO TRUONG. IV TEAM, PREOP ANESTHESIOLOGIST AND ER DOCTOR WAS CALLED TO GET A CENTRAL LINE ON THIS PATIENT AT 0715-0730AM. DR. BOYKIN UPDATED AND WAS AT BEDSIDE AT 0750AM. PT ON MAX OF QUAD STRENGTH KIMBERLEY AT 0800AM.OTHER VASOPRESSORS STARTED. CENTRAL LINE WAS PLACED BY IV TEAM AT 0830AM AND ARTERIAL LINE AT LEFT RADIAL PLACED BY DR. FERRER. PT WAS GIVEN 3L NS BOLUS. NO URINE OUTPUT SINCE 0700- 1230AM. DR. RODRIGUEZ MADE AWARE. RENAL CONSULT OBTAINED AND RECEIVED FURTHER ORDERS FROM DR. CORONADO. DR. MESA WAS CALLED AGAIN AT 1500 PM BY THIS RN TO INFORM THE TREND IN THE HEMOGLOBIN DROP, PLATELET DROP AND ELEVATED LACTIC ACID. NO ORDERS RECEIVED BY DR. MESA. ORDER FOR PLATELET AND PRBC TRANSFUSION RECEIVED BY DR. RODRIGUEZ.
[2021-06-06 15:04] LABS: POLYCHROMASIA OCCASIONAL
[2021-06-06 15:05] LABS: HYPOCHROMASIA SLIGHT
--- NOTE | 2021-06-06 16:11 | EKG ---
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 : 1945 Requested By: Ronald Cobb Order Number: [id number] MD: Gus Briscoe Measurements Intervals Dante Rate: 85 P: 26 WI: 116 QRS: 12 QRSD: 87 T: 53 QT: 338 QTc: 402 Interpretive Statements Sinus rhythm Atrial premature complexes in couplets Borderline short WI interval Low voltage, precordial leads Borderline T abnormalities, anterior leads No previous ECG available for comparison Electronically Signed On 06-06-2021 16:10:52 CDT by Gus Briscoe [email or web address] <ELECTRONICALLY SIGNED> By: Gus Briscoe MD, [facility] 06/06/21 1610 0950 0950 Gus Briscoe MD, FAC /EPI
[2021-06-06 21:25] LABS: HEMATOCRIT 23.7 % (42.0-52.0); HEMOGLOBIN 7.7 gm/dL (14.0-18.0); MCH 28.3 pg (26.0-34.0); MCHC 32.7 g/dL (28.0-37.0); MCV 86.4 fL (80.0-100.0); RBC 2.74 mil/uL (4.50-6.00); RDW 14.7 % (10.5-14.5); WBC 15.3 thou/uL (4.0-11.0)
[2021-06-06 21:46] LABS: ALBUMIN 1.6 g/dL (3.4-5.0); POTASSIUM 3.8 mmol/L (3.5-5.1); TOTAL PROTEIN 3.6 g/dL (6.4-8.2)
[2021-06-07] VITALS (48 sets, daily range): BP systolic 77–128; BP diastolic 49–82
[2021-06-07 04:53] LABS: RBC 2.78 mil/uL (4.50-6.00)
[2021-06-07 04:58] LABS: HEMATOCRIT 23.6 % (42.0-52.0); MCH 28.7 pg (26.0-34.0); MCHC 33.7 g/dL (28.0-37.0); MCV 85.2 fL (80.0-100.0); RDW 14.6 % (10.5-14.5); WBC 15.8 thou/uL (4.0-11.0)
[2021-06-07 05:17] LABS: CALCIUM 7.2 mg/dL (8.5-10.1); CREATININE 2.1 mg/dL (0.7-1.3); POTASSIUM 3.4 mmol/L (3.5-5.1)
--- NOTE | 2021-06-07 07:02 | O ---
[facility] [place] [address] OPERATIVE REPORT Name: ASHLEY PINTO Room #: 242-P ADM IN M.R.#: [id number] Admission: 06/01/21 Attend Phys: Adrián Gay MD Discharge: Date of : 41 Report #: [id number] THIS REPORT FOR: cc: Adrián Gay MD, Neal A. MD Forman, John M. MD ~ DATE OF SERVICE: 06/06/2021 PREOPERATIVE DIAGNOSIS: Hypotension related to abdominal surgery for sepsis. POSTOPERATIVE DIAGNOSIS: Hypotension related to abdominal surgery for sepsis. PROCEDURE: Placement of left radial arterial line. INDICATIONS: We were asked in the intensive care unit by the patient's attending physician to place an arterial line to help in the management of profound hypotension. The patient is on a high-dose Levophed and vasopressin for hypotension, status post abdominal surgery for perforated viscus. FINDINGS AND TECHNIQUE: Local anesthesia with lidocaine was obtained after the patient was prepped and draped. Ultrasound was used to identify the radial artery as the pulse was not palpable. Using Seldinger technique, the radial artery was identified and then entered with the needle and guidewire and then, the catheter was passed. When the catheter was assured to be in position, the arterial line was connected and the line was sutured into place. Sterile dressing was applied. The patient tolerated the procedure well considering the magnitude of the hypotension. <ELECTRONICALLY SIGNED> By: Navarro Meza MD 06/07/21 0702 0832 0843 Navarro Meza MD /nt
[2021-06-07 09:09] LABS: % SATURATION 7 % (20-39); IRON 6 ug/dL (65-175); TIBC 82 ug/dL (250-450)
[2021-06-07 09:42] LABS: FOLIC ACID 7.3 ng/mL (8.6-58.9)
[2021-06-07 11:07] LABS: ALBUMIN 1.5 g/dL (3.4-5.0); DIRECT BILIRUBIN 0.7 mg/dL (<0.1-0.2); TOTAL BILIRUBIN 1.3 mg/dL (0.2-1.0); TOTAL PROTEIN 3.4 g/dL (6.4-8.2)
--- NOTE | 2021-06-07 11:50 | HC ---
[facility] [place] [address] CONSULTATION Name: ASHLEY PINTO Room #: 242-P ADM IN M.R.#: [id number] Admission: 06/01/21 Attend Phys: Adrián Gay MD Discharge: Date of : 41 Report #: [id number] THIS REPORT FOR: cc: Adrián Gay MD, Neal A. MD Barry, Joseph W. MD ~ DATE OF SERVICE: 06/06/2021 INFECTIOUS DISEASE CONSULTATION ATTENDING PHYSICIAN: Dr. Gay. REASON FOR EVALUATION: Septic shock secondary to perforated colon complicated by peritonitis. HISTORY OF PRESENT ILLNESS: Chart reviewed. The patient examined. This is a 75-year-old gentleman with known ulcerative colitis who was hospitalized 06/01/2021 with complaints of severe pain. He was evaluated. Abdominal CT showed abnormal colonic bowel wall thickening involving the ascending colon consistent with his history of ulcerative colitis. He had apparently stabilized and was to be discharged, however, had severe pain. Repeat imaging overnight showed evidence of pneumoperitoneum involving the sigmoid colon felt to be secondary to perforation. He was emergently taken to surgery and was indeed confirmed to have peritonitis, underwent left colectomy with sigmoidectomy and end-colostomy. He is in the ICU. He is hemodynamically unstable, requiring multiple pressors. He is fairly lucid at this point. He is on supplemental oxygen per nasal cannula. Difficult to ascertain additional details of history. He has not had significant fevers to this point. He was empirically started on Zosyn and given Flagyl as well. ALLERGIES: None. CURRENT MEDICATIONS: Include furosemide, Zosyn, fentanyl, hydrocortisone, pantoprazole, p.r.n. ondansetron. PAST MEDICAL HISTORY: Includes ulcerative colitis, hypertension, enlarged prostate, high cholesterol. SOCIAL HISTORY: Former smoker. No illicit drug use. Rare ethanol. FAMILY HISTORY: Noncontributory. REVIEW OF SYSTEMS: Otherwise unremarkable and otherwise limited. PHYSICAL EXAMINATION: GENERAL: Appears chronically ill, undernourished. He is in moderate to marked [address] [address] CONSULTATION Name: ASHLEY PINTO Room #: 242-P [facility] IN M.R.#: [id number] Admission: 06/01/21 Attend Phys: Adrián Gay MD Discharge: Date of : 43 Report #: [id number] distress at this point. It is difficult to ascertain his degree of lucidity. VITAL SIGNS: Temperature 97.8, pulse 122, respirations 26, blood pressure 111/89. SKIN: Warm, dry, no rashes. HEENT: Nasal cannula in place. NECK: Supple. LUNGS: Diminished breath sounds. Few scattered crackles. CARDIOVASCULAR: Tachycardic, regular. I do not appreciate a murmur. ABDOMEN: Distended, firm. Ostomy in place in the left lower quadrant. GENITOURINARY AND RECTAL: Deferred. LABORATORY DATA: CBC: White count of 18.6, platelet count of 16. Chest x-ray: Showed some retrocardiac atelectasis and infiltrate, pneumoperitoneum. Electrolytes: Sodium 134, potassium 5.5, chloride 107, bicarbonate 10, anion gap of 17, BUN and creatinine 34 and 1.8, GFR of 37. Reviewed operative report. ABGs from earlier today: Blood gas showed pH of 7.407, pCO2 of 15.1, pO2 of 22 and 25.2, is on 100% nonrebreather. Hemoglobin and hematocrit 9.3 and 30.0. C. diff was negative on 06/03/2021. ASSESSMENT AND PLAN: Septic shock secondary to sigmoid perforation with peritonitis. Continue broad-spectrum therapy with the Zosyn. We will adjust it as needed for renal failure. Just that dose with antifungal should give us reasonable coverage at this point, he has not been on an extended period of antibiotics. We will go ahead and check blood cultures to exclude that aspect and if indeed shows evidence of gram-positive cocci, we will add additional antibiotics. He remains critically ill at this point. Continue ICU level support and postoperative care. <ELECTRONICALLY SIGNED> By: Mateus Harman MD 06/07/21 1150 1003 1350 Mateus Harman MD /nt
--- NOTE | 2021-06-07 16:59 | NUR ---
PT CONTINUES TO PROGRESS SLOWLY TOWARDS D/C GOAL. PT NO LONGER REQUIRING THE USE OF MULTIPLE PRESSORS FOR BLOOD PRESSURE SUPPORT AT THIS TIME. PT REQUIRED 3 THE PREVIOUS DAY AND IS NOW ON 1. ATTEMPTED TO TITRATE ALL PRESSORS OFF TODAY HOWEVER, PT BECAME HYPOTENSIVE WITHIN A MATTER OF MINS. PT PAIN APPEARS TO BE WELL CONTROLLED ACCORDING TO PT. PT LACTATE CONTINUES TO TREND DOWNWARDS. NO ADVANCEMENT IN DIET AT THIS TIME UNTIL PT HAS BETTER OUTPUT FROM COLOSTOMY PER DR. MESA. WILL CONTINUE TO FOLLOW POC.
[2021-06-07 21:09] LABS: RDW 14.8 % (10.5-14.5)
[2021-06-07 21:11] LABS: HEMOGLOBIN 6.7 gm/dL (14.0-18.0); MCH 28.3 pg (26.0-34.0); MCHC 33.5 g/dL (28.0-37.0); MCV 84.3 fL (80.0-100.0); RBC 2.36 mil/uL (4.50-6.00); WBC 13.6 thou/uL (4.0-11.0)
[2021-06-07 21:16] LABS: HEMATOCRIT 19.9 % (42.0-52.0)
--- NOTE | 2021-06-07 22:11 | NUR ---
2119 - CRITICAL RESULTS COMMUNICATED TO DR. RODRIGUEZ. ORDERS RECEIVED TO TRANSFUSE. UPDATE GIVEN ON PATIENTS CONDITION. 2154 - DR. MESA CALLED. CRITICAL RESULTS COMMUNICATED. NOTIFIED THAT PT HAS HAD APPROX 500ML DARK MAROON LIQUID STOOL FROM COLOSTOMY. NO ORDERS RECEIVED. 2204 - TRANSFUSION INITIATED. WILL CONTINUE TO MONITOR PT CLOSELY.
[2021-06-08] VITALS (16 sets, daily range): BP systolic 82–130; BP diastolic 50–89
--- NOTE | 2021-06-08 04:29 | NUR ---
PT WENT IN TO [facility] RVR IN THE 150'S-170'S. EKG COMPLETED TO CONFIRM. DR. RODRIGUEZ NOTIFIED. ORDERED RECEIVED, REFER TO EMAR.
[2021-06-08 05:04] LABS: ALBUMIN 1.2 g/dL (3.4-5.0); CALCIUM 7.3 mg/dL (8.5-10.1); CREATININE 1.9 mg/dL (0.7-1.3); PHOSPHORUS 4.6 mg/dL (2.5-4.9); POTASSIUM 3.4 mmol/L (3.5-5.1)
[2021-06-08 05:46] LABS: WBC 12.6 thou/uL (4.0-11.0)
[2021-06-08 05:49] LABS: HEMATOCRIT 20.6 % (42.0-52.0); MCH 28.7 pg (26.0-34.0); MCHC 33.8 g/dL (28.0-37.0); MCV 84.9 fL (80.0-100.0); RBC 2.42 mil/uL (4.50-6.00); RDW 14.9 % (10.5-14.5)
--- NOTE | 2021-06-08 07:53 | NUR ---
DR. AUGUSTIN AT BEDSIDE AT 0730, ORDERED 1L NS FOR BP AND ASKED FOR THE CARDIZEM TO BE STOPPED AND AMIO OR SOMETHING ELSE TO BE USED FOR HIS HEART RATE. DR. BOYKIN AT BEDSIDE AND HE ORDERED 1 UNIT RBC'S AND LOOKED AT THE PT'S STOMA AND WANTS US TO CHANGE THE BAG AND CLEAN IT TO MAKE SURE IT IS STILL BEEFY RED. COLOSTOMY CART ORDERED FROM CS.
--- NOTE | 2021-06-08 08:43 | HC ---
[facility] [place] [address] CONSULTATION Name: ASHLEY PINTO Room #: 242-P ADM IN M.R.#: [id number] Admission: 06/01/21 Attend Phys: Adrián Gay MD Discharge: Date of : 41 Report #: [id number] THIS REPORT FOR: cc: Adrián Gay MD, Neal A. MD McKittrick, Richard James MD ~ cc: Zoë Betts MD, Ronald Cobb MD, Tha Al MD, Pola Castorena MD DATE OF SERVICE: 06/07/[address] Adrián Gay. REASON FOR CONSULTATION: Thrombocytopenia. HISTORY OF PRESENT ILLNESS: The patient is a 75-year-old gentleman who was admitted on about 06/01 with abdominal pain and bleeding. He was thought to have ulcerative colitis, was begun on steroids and received a dose of infliximab I think on about 06/04. Earliest on 06/02, his platelet count was 282,000. The next count on 06/06 was 16,000, after transfusion 50,000 and today on the 06/07, it is 15,000. His admission hemoglobin was 11.3, it is currently 8. The patient did receive I think some red cells also. The patient did undergo surgery with Dr. Al for perforated colon, sigmoid and had a left colectomy, sigmoidectomy and an ostomy placement. The patient is currently in the ICU. He reports not having troubles with platelets before. He does not have any unusual bleeding from his IV sites, nares or mouth at this time. He also does not appear to have any unusual ecchymosis other than related to blood draws. PAST MEDICAL HISTORY: Reviewed. Chart reviewed. Has a history of the admission for abdominal pain and bleeding, subsequent perforation and sepsis. He also has a history of hyperlipidemia, hypertension. I think there is also a history of enlarged prostate if I recall. SOCIAL HISTORY: Not obtainable from the patient at this time. FAMILY HISTORY: Noncontributory. MEDICATIONS: At this time in the hospital include IV fluids, sliding scale insulin, sodium bicarbonate, fentanyl p.r.n., Zosyn begun on 06/06, hydrocortisone begun on 06/06 100 mg IV q. 6, pantoprazole 40 b.i.d. on 06/06, vasopressin drip, norepinephrine drip as needed, phenylephrine drip as needed, Zofran p.r.n., hydrocortisone rectal suppository begun on 06/01, MiraLax p.r.n. I believe, he is also on p.r.n. furosemide and early on he had lisinopril, also dose of fluconazole. [address] [address] CONSULTATION Name: ASHLEY PINTO Room #: 242-P [facility] IN .R.#: [id number] Admission: 06/01/21 Attend Phys: Adrián Gay MD Discharge: Date of : 41 Report #: [id number] PHYSICAL EXAMINATION: GENERAL: The patient appears his stated age. VITAL SIGNS: His height and weight in the chart include 5 feet 10 inches or 177.8 cm, 186 pounds or 84.8 kilograms. Recent blood pressure is 104/65, O2 sat 97%, respirations 16, pulse 97, afebrile at 98. FACE: He is an ill-appearing older male in the ICU. Face is somewhat pale. He is able to nod. He has a dry throat. He seems very fatigued and answering his questions. At this time, he denies any significant pain, though when he pushes on his abdomen, he winces a little bit. He does have a dry throat. Does not necessarily feel short of breath. He does feels tired, does not feel nauseous. Face appears symmetrical. Mouth dry without lesions. HEART: Regular rate. LUNGS: Symmetric, unlabored expansion. ABDOMEN: Has an ostomy, nondistended. EXTREMITIES: Has SCDs in place as there is some edema. LABORATORY REVIEW: Note that recent creatinine 2.1, which is stable from yesterday at 2. Electrolytes fairly normal though potassium is slightly low. AST 384 from yesterday. ALT 356 from yesterday. Total bilirubin 1.5 from yesterday. Lactic acid is 3.4 this morning that is down from 4.1 down from 6.6 earlier yesterday. Coags on 06/06 had an INR of 1.28. White count early this morning 15.8. Hemoglobin this morning was 8, as mentioned above that is stable over the last several days down from about 11.3 on admission. MCV stable at 85.2. Platelets 15 as mentioned above. Differential notable for increase in neutrophils. Also, yesterday, there was mention of 6 metamyelocytes and 1 myelocyte. IMAGING: Had included the CAT scan showing a perforation, but no hepatosplenomegaly or notable adenopathy. There was mesenteric edema and inflammation. No abnormalities in the liver, gallbladder, pancreas, adrenal glands, spleen, or kidneys present. Simple left renal cyst present. ASSESSMENT AND PLAN: 1. Thrombocytopenia, might be related to either recent sepsis with perforation or may be related to infliximab, not clear at this time. There is a case report of an early onset infliximab several days of administration. The more typical time course seems to be weeks or months later. The patient is on steroids. If we thought this infliximab related, we could also proceed with IVIG 1 g/kg/day for 2 days. At this time, after talking with Dr. Gay, we will watch cautiously, check his blood counts twice a day, transfuse if less than 15 and if they improve, then we would know that this is sepsis related. If it does not improve or he have difficulties with transfusion, we will consider administration of IVIG. No obvious bleeding at this point in time. 2. Anemia, watch cautiously. 3. Renal insufficiency. Urine output is improving. [facility] [address] [place] [address] CONSULTATION Name: ASHLEY PINTO Room #: 242-P ADM IN M.R.#: [id number] Admission: 06/01/21 Attend Phys: Adrián Gay MD Discharge: Date of : 41 Report #: [id number] 4. Sepsis secondary to bowel perforation. Multiple anti-infective. Nurse reports less need for pressors over the night. 5. History of what sounds like inflammatory bowel disease or ulcerative colitis. Dr. Gay and I talked about, he was going to check with GI to see if they think there will be future need for infliximab in the future. Would be cautious about use if this is thought to be related to infliximab. 6. Hypertension history, not currently an issue. 7. Hyperlipidemia, per others. We will follow with you. <ELECTRONICALLY SIGNED> By: Hu Graves MD 06/08/21 0843 0730 0902 Hu Graves MD /nt
--- NOTE | 2021-06-08 09:07 | EKG ---
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1945 Requested By: Adrián Gay Order Number: [id number] MD: Gus Briscoe Measurements Intervals [place] Rate: 171 P: MN: QRS: 8 QRSD: 78 T: 195 QT: 274 QTc: 462 Interpretive Statements Atrial fibrillation with rapid V-rate Low voltage, precordial leads Repolarization abnormality, prob rate related Compared to ECG 06/06/2021 09:50:37 Early repolarization now present Sinus rhythm no longer present Atrial premature complex(es) no longer present T-wave abnormality no longer present Electronically Signed On 06-08-2021 9:07:36 CDT by Gus Briscoe [email or web address] <ELECTRONICALLY SIGNED> By: Gus Briscoe MD, FACC 06/08/21 0907 1 041 Gus Briscoe MD, [facility] /EPI
[2021-06-08 10:08] LABS: HEMOGLOBIN 7.7 g/dL (13.0-17.7)
[2021-06-08 10:38] LABS: HEMOGLOBIN 7.1 gm/dL (14.0-18.0)
[2021-06-08 10:40] LABS: MCH 28.8 pg (26.0-34.0); MCHC 33.9 g/dL (28.0-37.0); MCV 84.8 fL (80.0-100.0); RBC 2.47 mil/uL (4.50-6.00); RDW 14.8 % (10.5-14.5); WBC 10.9 thou/uL (4.0-11.0)
[2021-06-08 11:10] LABS: HCO3 25.4 mmol/L (22.0-26.0); PCO2 29.4 mmHg (35.0-45.0); pH 7.554 (7.360-7.450); sO2 92.2 % (92.0-98.0)
[2021-06-08 11:11] LABS: PO2 53.7 mmHg (80.0-100.0)
[2021-06-08 22:12] LABS: HEMATOCRIT 20.3 % (42.0-52.0); HEMOGLOBIN 7.2 gm/dL (14.0-18.0); MCH 32.8 pg (26.0-34.0); MCHC 35.4 g/dL (28.0-37.0); MCV 92.7 fL (80.0-100.0); RBC 2.19 mil/uL (4.50-6.00); RDW 15.1 % (10.5-14.5); WBC 7.7 thou/uL (4.0-11.0)
[2021-06-09] VITALS (25 sets, daily range): BP systolic 110–138; BP diastolic 72–93
[2021-06-09 05:12] LABS: HEMOGLOBIN 7.1 gm/dL (14.0-18.0)
[2021-06-09 05:16] LABS: MCH 33.3 pg (26.0-34.0); MCHC 36.7 g/dL (28.0-37.0); MCV 90.8 fL (80.0-100.0); RBC 2.13 mil/uL (4.50-6.00); RDW 14.8 % (10.5-14.5); WBC 9.8 thou/uL (4.0-11.0)
[2021-06-09 05:34] LABS: DIRECT BILIRUBIN 0.4 mg/dL (<0.1-0.2); TOTAL BILIRUBIN 0.9 mg/dL (0.2-1.0); TOTAL PROTEIN 4.7 g/dL (6.4-8.2)
[2021-06-09 05:35] LABS: HEMATOCRIT 19.3 % (42.0-52.0)
[2021-06-09 05:43] LABS: ALBUMIN 0.9 g/dL (3.4-5.0); CALCIUM 6.9 mg/dL (8.5-10.1); CREATININE 1.4 mg/dL (0.7-1.3); POTASSIUM 3.4 mmol/L (3.5-5.1)
--- NOTE | 2021-06-09 07:49 | NUR ---
PT IS SLOWLY PROGRESSING TOWARDS PLAN OF CARE EVIDENCED BY CONTINUOUS NEED OF MONITORING OF ABD INCISION AND COLOSTOMY CARE
[2021-06-09 09:48] LABS: HEMATOCRIT 21.6 % (42.0-52.0); HEMOGLOBIN 7.4 gm/dL (14.0-18.0); MCH 31.2 pg (26.0-34.0); MCHC 34.3 g/dL (28.0-37.0); MCV 90.8 fL (80.0-100.0); RBC 2.38 mil/uL (4.50-6.00); RDW 14.8 % (10.5-14.5); WBC 11.9 thou/uL (4.0-11.0)
--- NOTE | 2021-06-09 11:07 | PATH ---
[facility] [address] [place] [address] PATHOLOGY RPT PROCEDURE Name: JEFFREY PINTO Bacilio Room #: 242-P ADM IN M.R.#: [id number] Admission: 06/01/21 Date of : 41 Discharge: Report #: [id number] Path Case #: [id number] LCA Accession Number: [id number] . 01 Material submitted: . sigmoid colon - SIGMOID COLON . 01 Clinical history: . EXPLORATORY LAPAROTOMY . 02 Diagnosis: Sigmoid colon, resection: - Severe active chronic colitis and diverticulitis with abscess formation and perforation. See comment. - Negative for dysplasia or malignancy. - Distal margin of first segment of bowel with nonviable mucosa; margins from second segment of bowel and proximal margin from first segment of bowel viable. - Benign reactive lymph node (SCA:reagan; 06/08/2021) QMS 06/08/2021 1552 Local . 02 Comment: No granulomata are identified. The mucosa is diffusely inflamed with pseudopolyp formation. Diverticula with acute and chronic inflammation are present. Extensive ulceration and marked acute inflammation throughout the entire bowel wall consistent with perforation. There is no evidence of dysplasia or malignancy. . This case was co-reviewed by Dr. Terry Guerrero on 06/08/2021, who agrees with the above diagnosis. (SCA:reagan; 06/08/2021) . 02 Electronically signed: . Michele Deng DO, Pathologist NPI- [id number] . 01 Gross description: . The specimen is received in formalin, labeled "Jeffrey Pinto, sigmoid colon" and consists of an unoriented segment of sigmoid colon (23.7 cm in length by 4.0 cm in diameter) with a moderate amount of attached fat. The serosa is purple-donovan, dusky, hemorrhagic with numerous fine and thickened adhesions. The serosa displays 2 full thickness defects (1.7 x 1.0 cm and 19.5 x 2.5 cm). The proposed distal stapled margin is inked black and the proposed proximal stapled margin is inked red. The mucosa is diffusely red-brown, shaggy, disrupted and displays at least 30 diffusely scattered polyps (ranging from 0.4 x 0.3 x 0.3 cm to 1.1 x 0.8 x 0.5 cm). Only 2.[address] [place] [address] PATHOLOGY RPT PROCEDURE Name: JEFFREY PINTO Room #: 242-P ADM IN M.R.#: [id number] Admission: 06/01/21 Date of : 41 Discharge: Report #: [id number] Path Case #: [id number] cm in length of normal intestinal mucosa is identified at the proposed proximal end. The wall thickness measures up to 1.2 cm thick. No invasion is identified. The distal lumen is focally narrowed down to approximately 0.9 cm in diameter. A ramires candidate lymph node (0.3 x 0.3 x 0.3 cm) is identified upon brief examination. . Also received in the same container is a second unoriented colon segment (27.0 cm in length by 3.8 cm in diameter) with a moderate amount of attached fat and portion of omentum (14.4 x 7.7 x 2.0 cm). The staple margins are differentially, arbitrarily inked blue and green. The serosa is donovan-ramires and dusky with fine adhesions. Two transmural defects (0.7 x 0.4 cm and 0.9 x 0.6 cm) are identified. The mucosa is ramires and smooth with slightly denuded intestinal folds and the lumen contains an abundant amount of fecal material. Also present are 7 small and wide mouth diverticulum (ranging from 0.4 x 0.3 x 0.3 cm to 1.5 x 1.2 x 0.8 cm). A focal abscess cavity (0.9 x 0.5 x 0.4 cm) is identified, no fistula tracts are present. The wall thickness ranges from 0.2 cm to 0.9 cm. The omentum is unremarkable. Coating Machine Feeder sections are submitted as follows: A1: Surgical margins from first colon segment, submitted en face, represented A2-A8: Full-thickness sections from first colon segment submitted sequentially from proposed proximal end to proposed distal end, represented to include the entirety of the candidate lymph node submitted in A8, a contiguous bisected section submitted in A4-A5, and a section adjacent to one of the transmural defects represented in A8 A9: Surgical margin from second colon segment, submitted en face, represented A10-A13: Diverticula, represented to include abscess cavity and denuded mucosa represented in A12 A14: Omentum, represented (TEJON; 06/07/2021) DKA/DKA 06/07/2021 1558 Local . 02 Pathologist provided ICD-10: K52.9, K63.0, K63.1, K57.20 . 02 CPT . 369570 Specimen Comment: A courtesy copy of this report has been sent to [phone] Specimen Comment: Report sent to Specimen Comment: A duplicate report has been generated due to demographic updates. Performed at: [address] [id number] MD Vadim Camp MD Phone: [phone] Performed at: [address] [address] PATHOLOGY RPT PROCEDURE Name: JEFFREY PINTO Room #: 242-P ADM IN [facility].#: [id number] Admission: 06/01/21 Date of : 41 Discharge: Report #: [id number] Path Case #: [id number] [address] [id number] MD Darrel Iyer MD Phone: [phone]
--- NOTE | 2021-06-09 11:30 | NUR ---
Discussed with bedside nurse report today. o2 5L/nasal cannula, going for bronch today. Cm vistied with gilda and family at bedside. No anticipated dc over the weekend. Will cont. following as needed for dc needs.
--- NOTE | 2021-06-09 16:20 | NUR ---
ASSUMED CARE OF PT AT 0700 DR. BOYKIN AT BEDSIDE GAVE ORDERS FOR ANOTHER UNIT OF BLOOD WELL K+ REPLACEMENT. DR. BOSCH AT BEDSIDE WELL, NO NEW ORDERS GIVEN. GI AT BEDSIDE, WOUND CARE AT BEDSIDE, DR. HERRERA AT BEDSIDE, DR. MUSE AT BEDSIDE. VARIOUS FAMILY HAS BEEN AT BEDSIDE THROUGHOUT THE DAY. CALL DR. OJEDA SON AT 1620 AND LEFT A MESSAGE ON HIS CELL PHONE REGARDING HIS INCISION WEEPING.
--- NOTE | 2021-06-09 21:34 | NUR ---
PT SPO2 DROPPED TO 86% AT 2100 DURING BATH. OXYGEN LEVEL WAS INCREASE FROM 5L TO 10L NC. PT WAS ON 10L FOR 15 MINS UNTIL HIS SPO2 WAS ABOVE 95%
[2021-06-09 22:23] LABS: RDW 15.4 % (10.5-14.5); WBC 9.5 thou/uL (4.0-11.0)
[2021-06-09 22:26] LABS: HEMOGLOBIN 7.5 gm/dL (14.0-18.0); MCH 35.2 pg (26.0-34.0); MCHC 37.7 g/dL (28.0-37.0); MCV 93.2 fL (80.0-100.0); RBC 2.13 mil/uL (4.50-6.00)
[2021-06-09 22:31] LABS: HEMATOCRIT 19.9 % (42.0-52.0)
[2021-06-10] VITALS (38 sets, daily range): BP systolic 108–185; BP diastolic 75–113
[2021-06-10 01:43] LABS: HEMATOCRIT 20.4 % (42.0-52.0); HEMOGLOBIN 7.4 gm/dL (14.0-18.0); MCH 33.6 pg (26.0-34.0); MCHC 36.2 g/dL (28.0-37.0); MCV 92.7 fL (80.0-100.0); RBC 2.2 mil/uL (4.50-6.00); RDW 15.1 % (10.5-14.5); WBC 10.1 thou/uL (4.0-11.0)
--- NOTE | 2021-06-10 01:53 | NUR ---
HEMO/ONC CALLED AT 1030 FOR CRITICAL LAB VALUES. HCT: 19.9 AND PLT: 10. LI FROM THE ANSWERING SERVICE RECEIVED THE CALL. DR. MUNOZ CALLED BACK AT 1040 AND SAID HE WAS GOING TO LOOK AT THE PT'S LAB REPORTS AND CALL BACK.
--- NOTE | 2021-06-10 01:58 | NUR ---
LAB CALLED FOR CRITICAL LAB VALUES AT 0145. PLT: 13. HEM/ONC WAS PAGED AND MESSAGED TO DR. MUNOZ WAS SEND VIA THE ANSWERING SERVICE
[2021-06-10 02:01] LABS: ALBUMIN 1.1 g/dL (3.4-5.0); CREATININE 1.2 mg/dL (0.7-1.3); MAGNESIUM 1.8 mg/dL (1.8-2.4); PHOSPHORUS 2.8 mg/dL (2.5-4.9); POTASSIUM 3.6 mmol/L (3.5-5.1); TOTAL BILIRUBIN 1.2 mg/dL (0.2-1.0); TOTAL PROTEIN 5.9 g/dL (6.4-8.2)
--- NOTE | 2021-06-10 03:44 | NUR ---
LAB CALLED AT 0335 AND REPORTED TO THIS RN THAT PLATELETS WON'T BE READY UNTIL 1000HRS
--- NOTE | 2021-06-10 03:50 | NUR ---
0245-SPOKE TO ANSWERING SERVICE FOR [facility] AFTER PRIMARY RN TRIED CALLING CRITICAL RESULTS TO [id number] WITHOUT RECEIVING ANY CALLBACK OR ORDERS. PER ANSWERING SERVICE, AND DESPITE VERIFYING PT'S NAME/ MULTIPLE TIMES, THEY WERE UNABLE TO FIND PT IN THEIR SYSTEM WHICH IS LIKELY WHY THE ON-CALL PHYSICIAN DIDN'T CALL BACK/GIVE ORDERS. ALTERNATE OPTION WAS TO TRY CONTACTING THE TRANSFER CENTER AND SEE IF THEY COULD GET A HOLD OF DR. BOSCH THAT WAY. D/T ON-GOING NATURE OF CRITICAL PLT COUNTS THAT HAVE BEEN WITHIN SIMILAR RANGE FOR MULTIPLE DAYS, OPTED TO NOTIFY PRIMARY PHYSICIAN. 0300-SPOKE W/MINES INSPECTOR ARTI, ANSWERING CALL FOR DR. BOYKIN THIS WEEKEND, AND EXPLAINED ABOUT PT'S HISTORY, RECURRENT TRANSFUSIONS, AND STANDING ORDER FOR PLT TRANSFUSION IF UNDER 15. ARTI AGREED/ORDERED NEW TYPE/SCREEN PRIOR ONE HAD AND TRANSFUSE A UNIT OF PLT.
--- NOTE | 2021-06-10 04:58 | NUR ---
DR. MUNOZ CALLED BACK ABOUT PT'S CRITICAL RESULTS. HE STATED THAT THE RESULTS OR OK / NO INTERVENTION NEEDED LONG THE PATIENT IS NOT ACTIVELY BLEEDING. HE WILL COME IN TODAY TO CHECK AT THE PATIENT
[2021-06-10 14:49] LABS: HEMATOCRIT 23.1 % (42.0-52.0); HEMOGLOBIN 8.1 gm/dL (14.0-18.0); MCH 32.2 pg (26.0-34.0); MCV 91.8 fL (80.0-100.0); RBC 2.52 mil/uL (4.50-6.00); RDW 15.5 % (10.5-14.5); WBC 15.4 thou/uL (4.0-11.0)
--- NOTE | 2021-06-10 14:56 | NUR ---
MET WITH /PT THIS DAY FOR OT EVALUATION. WHEN HEARD WHAT IT ENTAILS, ASKED IF THIS OTL COULD WAIT UYNTIL 06/12 HE IS SLOWLY GETTING STRONGER AND NOT YET BEEN UP. PT STILL VERY SOFT SPOKEN AND TALKING REQUIRES A LOT OF WORK. OT WILL EVAL 06/12. PT IS PROGRESSING WELL MEDICALLY PER RN
--- NOTE | 2021-06-10 21:42 | NUR ---
ASSUMED CARE AT 1900. PT W/RAPID BREATHING 30-40, HR IN 120'S, PT C/O SIGNIF PAIN IN ABD. PRN FENT GIVEN. LEFT LUNG SOUNDS EXTREMELY DIMINISHED, ALMOST INAUDIBLE. 2019-TALKED W/DRUG CLERK ARTI, JURY CONSULTANT FOR DR. BOYKIN, ASKED ABOUT STARTING SOMETHING FOR ANXIETY TO EASE WORK OF BREATHING/LOWER HR. OBTAINED ORDER FOR PRECEDEX GTT AND STAT CXR. 2126-DR. RODRIGUEZ CALLED, REVIEWED CXR, ORDERED BIPAP IF PT WOULD TOLERATE, AND HE WOULD BE HERE IN ABOUT 20 MIN AND MAY DO A BEDSIDE BRONCH, TRYING TO AVOID INTUBATION. WILL CONTINUE TO MONITOR.
[2021-06-10 22:19] LABS: BE(vivo) -2.2 mmol/L (-2 to +3); HCO3 21.9 mmol/L (22.0-26.0); PCO2 34.2 mmHg (35.0-45.0); PO2 68.1 mmHg (80.0-100.0); pH 7.425 (7.360-7.450); sO2 94.2 % (92.0-98.0)
[2021-06-11] VITALS (72 sets, daily range): BP systolic 90–162; BP diastolic 67–104
[2021-06-11 04:40] LABS: HEMOGLOBIN 6.7 gm/dL (14.0-18.0)
[2021-06-11 04:42] LABS: MCH 34.8 pg (26.0-34.0); MCHC 37.5 g/dL (28.0-37.0); MCV 92.8 fL (80.0-100.0); RBC 1.93 mil/uL (4.50-6.00); RDW 15.7 % (10.5-14.5); WBC 15.9 thou/uL (4.0-11.0)
[2021-06-11 04:45] LABS: HEMATOCRIT 17.9 % (42.0-52.0)
[2021-06-11 04:51] LABS: ALBUMIN 0.9 g/dL (3.4-5.0); CALCIUM 7.1 mg/dL (8.5-10.1); CREATININE 1.3 mg/dL (0.7-1.3); PHOSPHORUS 3.9 mg/dL (2.5-4.9)
--- NOTE | 2021-06-11 09:35 | NUR ---
Informed Dr. Cobb of patients increase in RR. ABG ordered, RT informed. at bedside.
--- NOTE | 2021-06-11 09:49 | NUR ---
Dr. Cobb decided to proceed with intubation, orders recieved, & patient informed
[2021-06-11 11:39] LABS: BE(vivo) -3.1 mmol/L (-2 to +3); HCO3 22.5 mmol/L (22.0-26.0); PCO2 43.3 mmHg (35.0-45.0); PO2 149.5 mmHg (80.0-100.0); pH 7.334 (7.360-7.450); sO2 98.8 % (92.0-98.0)
[2021-06-11 11:50] LABS: HEMOGLOBIN 7.5 gm/dL (14.0-18.0)
[2021-06-11 11:51] LABS: HEMATOCRIT 21.3 % (42.0-52.0)
--- NOTE | 2021-06-11 12:07 | NUR ---
Patient intubated at [address] Cobb and RT. 7.5 24 @ teeth. 8cc of propofol given for sedation, succ ordered but not needed. Patient tolerated intubation, informed and in the room. Educated her regarding restraints. All questions and concerns were addressed.
--- NOTE | 2021-06-11 15:15 | NUR ---
Informed RT of sputum culture pending, RN and RT unable to collect sample at this time due to no secretions.
--- NOTE | 2021-06-11 19:48 | NUR ---
Patient intubated today at 1045 7.5 24 @ teeth, OGT place 63cm. Currently infusing fentanyl and precedex, weaned off propofol per Dr. Cobb. Albumin followed by lasix BID added. Good urine output my shift, midline incision requiring packing and still oozying. Dr. Al aware. Family at bedside throughout the day, all questions and concerns addressed
[2021-06-12] VITALS (51 sets, daily range): BP systolic 93–136; BP diastolic 68–96
[2021-06-12 05:26] LABS: MCH 32.6 pg (26.0-34.0); MCHC 35.2 g/dL (28.0-37.0); MCV 92.6 fL (80.0-100.0); PLATELET COUNT 44 thou/uL (150-400); RBC 2.16 mil/uL (4.50-6.00); RDW 15.2 % (10.5-14.5)
[2021-06-12 05:28] LABS: ALBUMIN 1.6 g/dL (3.4-5.0); CALCIUM 7.1 mg/dL (8.5-10.1); CREATININE 1.4 mg/dL (0.7-1.3); POTASSIUM 3.3 mmol/L (3.5-5.1); TOTAL BILIRUBIN 2.2 mg/dL (0.2-1.0); TOTAL PROTEIN 6.1 g/dL (6.4-8.2)
--- NOTE | 2021-06-12 06:20 | NUR ---
PT IS LIGHTLY SEDATED WITH PRECEDEX AND FENTANYL FOR VENT MANAGEMENT. HE IS EASILY ARROUSABLE AND FOLLOWS SIMPLE COMMANDS. PT NODS HEAD YES/NO AND ATTEMPTS TO MOUTH WORDS. BILATERAL WRIST RESTRAINTS REMAIN IN PLACE TO PREVENT DISCONNECTING LINES/TUBES. OGT WITH TF INFUSING AT 10ML/HR PER DR ORDER. IVF AND TPN INFUSING WELL. BLAIR TO DD WITH GOOD URINE OUTPUT, ESPECIALLY AFTER LASIX AND ALBUMIN WERE GIVEN. CHANGED COLOSTOMY APPLICANCE AND MIDLINE ABDOMINAL DRESSING DUE TO WEEPING DRAINAGE. DRESSING REMAINS INTACT AT THIS TIME. TITRATED FIO2 DOWN FROM 80% TO 60% ON VENT. SPO2 >95% ON VENT SETTINGS. TOLERATING VENT WELL. REPOSITIONED TO PREVENT SKIN BREAKDOWN. PROGRESSING SLOWLY TOWARD POC GOALS. WILL GIVE REPORT TO ONCOMING NURSE.
--- NOTE | 2021-06-12 10:23 | NUR ---
WOUND/OSTOMY F/U; THE OSTOMY IS FUNCTIONING WNL. NOTICED THE RIGHT LATERAL INSCISION HAS DEHISCIED AND MEASURES4.5 X 4.5 X 4.0 IN APPROXIMALLY THE MIDDLE OF THE ISCISION LINE. RN WILL CALL TO ASK SURGEON IF HE WANTS DR CROUCH TO MANAGE THIS WOUND. GENTLY PACKED THE WOUND WITH AQUACEL AG TO MANAGE THE UNCONTROLABLE DRAIANGE. RN PRESENT.
--- NOTE | 2021-06-12 10:50 | NUR ---
P.T. TREATMENT PLACED ON HOLD AT THIS TIME DUE TO DECLINE IN MEDICAL STATUS W/ SUBSEQUENT INTUBATION. REQUEST NEW P.T. ORDERS ONCE APPROPRIATE.
[2021-06-12 11:47] LABS: BE(vivo) -2.1 mmol/L (-2 to +3); HCO3 23.2 mmol/L (22.0-26.0); PO2 75.7 mmHg (80.0-100.0); sO2 94.7 % (92.0-98.0)
--- NOTE | 2021-06-12 12:00 | NUR ---
UPDATE PT ON PLAN AND TREATMENTS
--- NOTE | 2021-06-12 12:54 | NUR ---
PT MEDICALLY DECLINED SO NO OT TODAY. IN ROOM AND IN AGREEMENT
[2021-06-12 14:13] LABS: ABSOLUTE NEUTROPHILS 13.8 thou/uL (1.4-8.2); NUCLEATED RBCS 4 /100WBC
[2021-06-12 14:16] LABS: ANISOCYTOSIS 2+
--- NOTE | 2021-06-12 15:37 | NUR ---
PT FOUND W/ NON BLANCHANLE REDNESS ON RT BUTTOCK, WOUND CARE NURSE Gaby @ BEDSIDE, EPC APPLIED. ABDOMEN WOUND WEEPING DARK BLOOD, DRESSING CHANGED X2 AND REINFORCED. PT NOTE W/ DARK BLOOD RECTALLY MD LEVINE NOTIFIED, 1 UNTI PRBC INFUSING PER ORDER. PT CLEANED AND LINEN/GOWN PARTIALLY CHANGED.
--- NOTE | 2021-06-12 18:00 | NUR ---
PT NOT PROGRESSING TOWARD PLAN OF CARE D/T NEED FOR VENTILATOR SUPPORT, RECIEVED 1 PRBC, REQUIRED ELETROLYTE REPLACEMENT, AND EXTRA DOSE OF ALBUMEN F/U BY BARTOLO.
[2021-06-12 21:01] LABS: HEMOGLOBIN 7.5 gm/dL (14.0-18.0)
[2021-06-12 21:02] LABS: HEMATOCRIT 21.2 % (42.0-52.0)
[2021-06-13] VITALS (27 sets, daily range): BP systolic 119–143; BP diastolic 82–99
[2021-06-13 05:31] LABS: ALBUMIN 2.3 g/dL (3.4-5.0); CALCIUM 7.6 mg/dL (8.5-10.1); CREATININE 1.5 mg/dL (0.7-1.3); PHOSPHORUS 3.7 mg/dL (2.6-4.7)
[2021-06-13 05:44] LABS: HEMOGLOBIN 7.3 gm/dL (14.0-18.0)
[2021-06-13 05:49] LABS: HEMATOCRIT 20.1 % (42.0-52.0); MCH 33.8 pg (26.0-34.0); MCHC 36.3 g/dL (28.0-37.0); RBC 2.16 mil/uL (4.50-6.00); RDW 15.5 % (10.5-14.5); WBC 11.6 thou/uL (4.0-11.0)
[2021-06-13 05:50] LABS: CALCIUM 7.7 mg/dL (8.5-10.1); CREATININE 1.5 mg/dL (0.7-1.3); MAGNESIUM 1.7 mg/dL (1.8-2.4)
--- NOTE | 2021-06-13 07:18 | NUR ---
PATIENT W/ MEDICAL DECLINE, REQUIRING INTUBATION. WILL PLACE PT ON HOLD AT THIS TIME. PLEASE SEND NEW ORDERS WHEN MEDICALLY ABLE TO PARTICIPATE IN THERAPIES. THANK YOU.
--- NOTE | 2021-06-13 07:44 | NUR ---
NO SIGNIFICANT EVENTS DURING THE NIGHT. PT REMAINS LIGHTLY SEDATED WITH PRECEDEX AND FENTANYL GTTS. HE IS EASILY ARROUSABLE AND ABLE TO FOLLOW SIMPLE COMMANDS. WRIST RESTRAINTS IN PLACE TO PREVENT DISCONNECTING LINES/TUBES. TOLERATING VENT WELL. RT TITRATED FIO2 DOWN FROM 60% TO 50%. SPO2 >92%. MIDLINE ABDOMINAL INCISION WEEPING - DRESSING CHANGED TWICE DURING THE NIGHT DUE TO BECOMING SATURATED WITH DRAINAGE. COLOSTOMY INTACT WITH SMALL AMOUNT RED/BROWN STOOL. TPN INFUSING ORDERED. GOOD URINE OUTPUT VIA BLAIR. EDEMA IMPROVING SLIGHTLY. REPLACING POTASSIUM AND MAGNESIUM PER ELECTYOLYTE PROTOCOL. REPORT GIVEN TO ONCOMING NURSE.
--- NOTE | 2021-06-13 08:40 | NUR ---
Chart review, discussed during am unit rounds. Remains on vent, tpn for nutritional support. son at bedside. Wound care consult. Will cont following as needed for dc needs.
--- NOTE | 2021-06-13 19:38 | NUR ---
PT IS PROGRESSING TOWARD DISCHARGE EVIDENCED BY LOWER VENT SETTINGS, NEW ORDERS FOR WOUND CARE, PT CONTINUES TO AWAKEN TO VOICE. WOUND CARE AND DRESSING CHANGE COMPLETED TWICE DURING SHIFT; BOTH 6 H APART; BOTH TIMES DRESSINGS VERY SATURATED WITH SEROSANGUINEOUS FLUID. EDEMA IS IMPROVING WITH CURRENT DIURETIC REGIMEN. POTASSIUM DEPLETION CONTINUES TO BE AN ISSUE; REPLACED 4 TIMES DURING SHIFT WITH LABS DRAWN PER PROTOCOL. VENT FI02 DECREASED FROM 50 TO 40. PT AFIB CONTROLLED ALTHOUGH ADMINISTRATION OF AMIO PO NOT YET ORDERED, STILL NEED CLEARANCE FROM SURGICAL TEAM. RT BUTTOCK DTI NOTED AND PICS ON CHART.
[2021-06-14] VITALS (62 sets, daily range): BP systolic 129–160; BP diastolic 85–112
[2021-06-14 05:30] LABS: MCH 33.5 pg (26.0-34.0); MCHC 36.1 g/dL (28.0-37.0); MCV 92.8 fL (80.0-100.0); RBC 2.09 mil/uL (4.50-6.00); RDW 15.1 % (10.5-14.5); WBC 9.2 thou/uL (4.0-11.0)
[2021-06-14 05:36] LABS: ALBUMIN 2.6 g/dL (3.4-5.0); CALCIUM 7.8 mg/dL (8.5-10.1); CREATININE 1.4 mg/dL (0.7-1.3); MAGNESIUM 1.9 mg/dL (1.8-2.4); PHOSPHORUS 3.4 mg/dL (2.5-4.9)
[2021-06-14 05:49] LABS: HEMATOCRIT 19.4 % (42.0-52.0)
--- NOTE | 2021-06-14 07:35 | NUR ---
PT IS SLOWLY PROGRESSING TOWARDS PLAN OF CARE EVIDENCED BY CONTUNUED DEPENDENCE ON VENT FOR O2 SUPPORT.
--- NOTE | 2021-06-14 12:14 | NUR ---
WOUND CARE F/U; THE WOUND DRAINAGE IS BEING MANAGED BETTER TODAY USING DRAWLEX AND AQUACEL AG COVERED WITH ABD,TAPE. FAMILY IS IN THE ROOM. NO ODOR TODAY. PERIOWOUND LOOKS BETER. NO CHANGES TODAY. DISCUSSED WITH ALVAOR
[2021-06-15] VITALS (38 sets, daily range): BP systolic 109–144; BP diastolic 72–97
[2021-06-15 04:52] LABS: HEMATOCRIT 22.2 % (42.0-52.0); HEMOGLOBIN 7.9 gm/dL (14.0-18.0); MCH 33.5 pg (26.0-34.0); MCHC 35.4 g/dL (28.0-37.0); MCV 94.4 fL (80.0-100.0); RBC 2.35 mil/uL (4.50-6.00); RDW 15.5 % (10.5-14.5); WBC 7.9 thou/uL (4.0-11.0)
[2021-06-15 05:50] LABS: ALBUMIN 2.8 g/dL (3.4-5.0); CREATININE 1.2 mg/dL (0.7-1.3); PHOSPHORUS 3.3 mg/dL (2.5-4.9)
[2021-06-15 06:00] LABS: POTASSIUM 2.8 mmol/L (3.5-5.1)
--- NOTE | 2021-06-15 06:00 | NUR ---
REMAINS INTUBATED AND SEDATED. A DEAR DEVENDRA LIZARRAGA NODS APPROP TO QUESTIONS. REMAINS IN AFIB. ABD WOUND DRESSING CHANGED. COLOSTOMY INTACT BATHED. 3000 CC UO THIS SHIFT. SLOWLY PROGRESSING TOWARD GOALS
--- NOTE | 2021-06-15 09:54 | HC ---
[facility] [place] [address] CONSULTATION Name: ASHLEY PINTO Room #: 242-P ADM IN M.R.#: [id number] Admission: 06/01/21 Attend Phys: Adrián Gay MD Discharge: Date of : 41 Report #: [id number] THIS REPORT FOR: cc: Adrián Gay MD, Neal A. MD Althoff,Ceferino Wiley MD ~ DATE OF SERVICE: 06/09/2021 CHIEF COMPLAINT: Colostomy. HISTORY OF PRESENT ILLNESS: This is a 75-year-old male patient presented with abdominal pain to the emergency department. He underwent an exploratory laparotomy with left sigmoid colectomy with colostomy placement. He has a surgical midline incision, which is being managed by Dr. Al. GI has asked that we have a look for evaluation of the ostomy site and erick fitting ostomy appliance. The patient states he has some discomfort. He is in ICU, awake and alert. Family at bedside. PAST MEDICAL HISTORY: Positive for inflammatory bowel disease, hypertension, elevated cholesterol and enlarged prostate. SOCIAL HISTORY: The patient is a previous smoker. No alcohol use. FAMILY HISTORY: Noncontributory. MEDICATIONS: Include finasteride, hydrocodone, budesonide, rosuvastatin, hydrochlorothiazide, lisinopril. ALLERGIES: No known drug allergies. REVIEW OF SYSTEMS: CONSTITUTIONAL: Denies fever, chills, weight loss. NEUROLOGICAL: Denies focal weakness, numbness, tingling. EYES: The patient denies visual changes,redness, or drainage. ENT: The patient denies earache, nasal drainage or sore throat. CARDIOVASCULAR: The patient denies chest pain, palpitations or diaphoresis. PULMONARY: The patient denies cough or shortness of breath. GASTROINTESTINAL: The patient complains of generalized abdominal discomfort. Denies vomiting or diarrhea. GENITOURINARY: The patient denies frequency, urgency or dysuria. Others systems in a 14-point review of systems are negative. PHYSICAL EXAMINATION: VITAL SIGNS: At this time include temperature 36.7, pulse 110, respiratory rate of 27, blood pressure 135/84. GENERAL: This is a somewhat chronically ill-appearing male patient who appears [facility] [address] [place] [address] CONSULTATION Name: ASHLEY PINTO Room #: 242-[facility] IN M.R.#: [id number] Admission: 06/01/21 Attend Phys: Adrián Gay MD Discharge: Date of : 41 Report #: [id number] to be in minimal distress. HEENT: Normocephalic. Nose and throat are clear. NECK: Supple. LUNGS: Diminished. HEART: Regular rhythm. ABDOMEN: Soft. There is a midline surgical dressing in place. I have not removed this. While evaluate the ostomy, it appears to be pink and viable. There is no breakdown to the periostomy site. There is a bit of a convexity to the abdominal wall contour noted. CLINICAL IMPRESSION: 1. Perforated sigmoid colon, status post resection and colostomy. 2. Thrombocytopenia. 3. Atrial fibrillation. 4. Acute kidney injury. RECOMMENDATIONS: At this point in time I think that a convex ring would be helpful in getting a good seal for the ostomy appliance. This was applied at the bedside with a good fit. I do not see any compromise to the ostomy site itself. The patient has a midline surgical incision that I have not evaluated and we will recommend continued management per general surgery. At this point in time, I think nursing could manage the a convex ring and the appliance fitting at bedside and we will sign off and appreciate being asked to see him in consultation. <ELECTRONICALLY SIGNED> By: Ceferino Pittman MD 06/15/21 0954 1121 0050 Ceferino Pittman MD /nt
[2021-06-15 12:57] LABS: BE(vivo) 4.9 mmol/L (-2 to +3); HCO3 28.7 mmol/L (22.0-26.0); PCO2 39.4 mmHg (35.0-45.0); PO2 166.3 mmHg (80.0-100.0); pH 7.481 (7.360-7.450); sO2 99.2 % (92.0-98.0)
--- NOTE | 2021-06-15 19:20 | NUR ---
PT NOTED TO BE SHIVERING WARN BLANKET PLACED. pT RECIEVED 1 UNIT ON MONOR DONER PLATLETS. F/U ON PLATLETS AND ELECTROLYTES
[2021-06-16] VITALS (31 sets, daily range): BP systolic 112–147; BP diastolic 66–108
[2021-06-16 06:11] LABS: HEMOGLOBIN 6.8 gm/dL (14.0-18.0); WBC 4.8 thou/uL (4.0-11.0)
[2021-06-16 06:14] LABS: MCH 32.7 pg (26.0-34.0); MCHC 34.8 g/dL (28.0-37.0); RBC 2.07 mil/uL (4.50-6.00); RDW 15.1 % (10.5-14.5)
[2021-06-16 06:17] LABS: HEMATOCRIT 19.4 % (42.0-52.0)
[2021-06-16 06:30] LABS: CALCIUM 8.1 mg/dL (8.5-10.1); CREATININE 1.1 mg/dL (0.7-1.3); MAGNESIUM 2.3 mg/dL (1.8-2.4); POTASSIUM 3.7 mmol/L (3.5-5.1)
--- NOTE | 2021-06-16 08:20 | NUR ---
PT CONTINUES TO HAVE LARGE AMOUNT OF SEROUS DRAINAGE FROM ABD WOUND. REPLACED POTASSIUM OVERNIGHT. SPOKE WITH DR. BOSCH AND DR. BOYKIN AT BEDSIDE THIS AM WITH ONCOMING RN. MORE LABS ORDERED WELL CT ABD. PT TO RECEIVE PRBC AND PLT TRANSFUSION TODAY. POOR PROGRESSION TOWARDS GOALS.
[2021-06-16 09:13] LABS: APTT 33.5 Seconds (24.5-32.8); INR 1.13; PROTIME 12.2 Seconds (10.5-12.1)
[2021-06-16 09:39] LABS: ALBUMIN 2.4 g/dL (3.4-5.0); TOTAL BILIRUBIN 4.4 mg/dL (0.2-1.0); TOTAL PROTEIN 5.4 g/dL (6.4-8.2)
[2021-06-16 11:09] LABS: ABSOLUTE RETIC COUNT 0.1361 10^6/uL; OBSERVED RETIC COUNT 6.24 % (0.6-2.6)
--- NOTE | 2021-06-16 19:19 | NUR ---
PT IS NOT PROGRESSING TOWARDS DISCHARGE GOALS. PT STILL REQUIRING BLOOD TRANSFUSIONS, PT GIVEN 1 UNIT PRBC AND 1 UNIT PLT. PT ALSO HAD CT SCAN DONE TO ASSESS FOR S/S OF BLEEDING WITHING THE PELVIC/ABD AREA, NO S/S OF BLEEDING FOUND. PT UNDERWENT CPAP TRAIL TODAY AND PERFORMED WELL FOR OVER AN HOUR TODAY. PT FAMILY AT BEDSIDE TODAY THROUGHOUT THE DAY. PT CONTINUES TO HAVE LARGE AMOUNT OF DRAINAGE FROM MIDLINE INCISION. WILL CONTINUE TO FOLLOW THE POC.
[2021-06-17] VITALS (27 sets, daily range): BP systolic 118–151; BP diastolic 82–110
--- NOTE | 2021-06-17 04:43 | NUR ---
ASSUMED CARE AT 1900. PT W/HR TRENDING UP, RUNNING OVER 100 OVERNIGHT, FREQ INTO 120'S, MINIMAL CHANGE W/SCHEDULED LOPRESSOR. PRN VERSED GIVEN FOR ANXIETY. ABD WOUND HEAVILY SATURATING DRESSING. PLACED RECTAL THERMOMETER AROUND MIDNIGHT, PT HAD SMALL AMOUNT OF BRIGHT RED BLOOD PRESENT. POOR PROGRESSION TOWARDS GOALS.
[2021-06-17 06:07] LABS: HEMOGLOBIN 7.4 gm/dL (14.0-18.0); RDW 17.3 % (10.5-14.5)
[2021-06-17 06:09] LABS: HEMATOCRIT 21.6 % (42.0-52.0); MCH 30.9 pg (26.0-34.0); MCV 90.6 fL (80.0-100.0); RBC 2.39 mil/uL (4.50-6.00); WBC 3.7 thou/uL (4.0-11.0)
[2021-06-17 09:26] LABS: CALCIUM 8.3 mg/dL (8.5-10.1); CREATININE 1.1 mg/dL (0.7-1.3); POTASSIUM 4.1 mmol/L (3.5-5.1)
--- NOTE | 2021-06-17 16:39 | NUR ---
PATIENT SLOWLY PROGRESSING TOWARDS THE PLAN OF CARE HOWEVER STILL REQUIRING 1 PLATELET TRANSFUSION TODAY. SIGNALS ANALYST ORDERED 1 U OF PRBC AFTER THIS RN INFORMED HER OF HGB BEING 7.3. SIGNALS ANALYST ALSO SAID IF BLOOD BANK DIDN'T WANT TO GIVE THE BLOOD, THAT WOULD BE "OK." THIS RN CALLED BLOOD BANK PRIOR TO PUTTING IN THE ORDERS AND BLOOD BANK INFORMED THIS RN THAT THE PT DID NOT MEET ANY OF THE CRITERIA FOR BLOOD TRANSFUSION.
[2021-06-18] VITALS (24 sets, daily range): BP systolic 116–140; BP diastolic 66–100
[2021-06-18 05:27] LABS: CALCIUM 8.2 mg/dL (8.5-10.1); POTASSIUM 4.4 mmol/L (3.5-5.1)
[2021-06-18 05:28] LABS: HEMOGLOBIN 7.1 gm/dL (14.0-18.0)
[2021-06-18 05:31] LABS: HEMATOCRIT 21.3 % (42.0-52.0); MCH 30.9 pg (26.0-34.0); MCHC 33.5 g/dL (28.0-37.0); MCV 92.4 fL (80.0-100.0); RBC 2.31 mil/uL (4.50-6.00); RDW 17.5 % (10.5-14.5); WBC 4.1 thou/uL (4.0-11.0)
--- NOTE | 2021-06-18 08:16 | NUR ---
1954-SPOKE TO DR. SHETTY, OBTAINED ORDER FOR AMIO GTT. AFIB RVR 130-140 SUSTAINING WITH JUMPS TO 170s. 2129-AMIO GTT STARTED. PT WITH ELEVATED HR STILL 110-120. STARTED PROPOFOL GTT AT 0. PT MUCH MORE COMFORTABLE, HR GRADUALLY DOWN TO 80-90. PT HAD MODERATE AMT BRIGHT RED BLOOD FROM RECTUM. HEAVY, SATURATING YELLOW-RED DRAINAGE FROM ABD WOUND. 3+ EDEMA BLE AND SCROTUM. TOLERATING TF, ADVANCED TO 20 ML/HR AT 0400. POOR PROGRESSION TOWARDS GOALS.
--- NOTE | 2021-06-18 17:52 | NUR ---
PATIENT SLOWLY PROGRESSING TOWARDS THE PLAN OF CARE EVIDENCED BY INCREASED TOLERANCE OF TUBE FEEDS. HOWEVER, PT STILL UNABLE TO WEAN OFF THE VENTILATOR AND CBC VALUES TRENDING DOWNWARD.
[2021-06-19] VITALS (24 sets, daily range): BP systolic 114–151; BP diastolic 52–102
[2021-06-19 04:08] LABS: BE(vivo) -0.1 mmol/L (-2 to +3); HCO3 23.8 mmol/L (22.0-26.0); PCO2 35.4 mmHg (35.0-45.0); PO2 87.8 mmHg (80.0-100.0); pH 7.446 (7.360-7.450); sO2 97.1 % (92.0-98.0)
--- NOTE | 2021-06-19 06:00 | NUR ---
REMAINS INTUBATED AND SEDATED. ABD WOUND DSG CHANGED FOR A LARGE AMT OF SEROUS DRAINAGE. 1000 CC US THIS SHIFT. FOLLOWS SIMPLE CONMMANDS. REMAINS ON PRECEDEX PROPOFOL AND FENTANYL FOR SEDATION. VERY SLOWLY PROGRESSING TOWARD GOALS. CONT IN AFIB AMIO GTT AT .5 MG WILL CONT TO MONITOR
[2021-06-19 06:27] LABS: HEMOGLOBIN 7.6 gm/dL (14.0-18.0); WBC 4.7 thou/uL (4.0-11.0)
[2021-06-19 06:28] LABS: HEMATOCRIT 23.4 % (42.0-52.0); MCH 30.4 pg (26.0-34.0); MCHC 32.5 g/dL (28.0-37.0); MCV 93.7 fL (80.0-100.0)
[2021-06-19 06:51] LABS: ALBUMIN 2.9 g/dL (3.4-5.0); CALCIUM 8.1 mg/dL (8.5-10.1); MAGNESIUM 2.6 mg/dL (1.8-2.4); POTASSIUM 4.9 mmol/L (3.5-5.1); TOTAL BILIRUBIN 4.5 mg/dL (0.2-1.0); TOTAL PROTEIN 5.1 g/dL (6.4-8.2)
[2021-06-19 09:16] LABS: PLATELET COUNT 17 thou/uL (150-400)
--- NOTE | 2021-06-19 09:16 | NUR ---
PLATELET COUNT ORDERED 0600, CRITICAL RESULT CALLED AT 0915 - 17,000. WILL COMMUNICATE TO APPROPERIATE PHYSICIAN
[2021-06-19 09:27] LABS: ABSOLUTE NEUTROPHILS 4.2 thou/uL (1.4-8.2)
[2021-06-19 09:29] LABS: ANISOCYTOSIS 2+
--- NOTE | 2021-06-19 10:54 | NUR ---
WOUND F/U; THE ABDOMENAL DEHISCEINCE IS SOMEWHAT STABLE TODAY. WE HAVE BEEN ABLE TO CONTROL THE DRAINAGE AND TOPICAL CONTAMINATION WITH AQUACEL AG, DRAWTEX AND ABD'S THERE IS NO ODOR. THE DRAINAGE IS YELLOW. AROUND THE JENNIFER IS ERYTHEMA. THE PATIENT IS ALERT AND HIS IS PRESENT. NO CHANGES IN THE WOUND POC AT THIS TIME. RN PRESENT.
--- NOTE | 2021-06-19 14:35 | NUR ---
Discussed during unit rounds, afib, no cpap trail while in afib. Vent 30 % FIO2, peep 5. at bedside. Will cont. following as needed for dc needs.
[2021-06-19 16:40] LABS: ABSOLUTE RETIC COUNT 0.3586 10^6/uL; OBSERVED RETIC COUNT 13.7 % (0.6-2.6)
--- NOTE | 2021-06-19 19:40 | NUR ---
PATIENT IS NOT PROGRESSING TOWARDS DISCHARGE AT THIS TIME, THE BARRIER TO DISCHARGE AT THIS TIME BEING INABILITY TO DO CPAP TRIALING DUE TO CONTINUING AFIB RVR, METOPROLOL IS SCHEDULED AND GIVEN PER ORDER, VERSED WAS ALSO GIVEN ONCE FOR AGITATION AND HR WAS SEEN SLOWING DOWN 140 > 120 PATIENT IS TOLERATING TUBE FEEDING, MINIMAL RESIDUALS, PER PROVIDER, TPN TO BE COMPLETED AFTER LAST BAG AND TUBE FEEDING ONLY AFTER PATIENT OSTOMY BAG APPLIANCE WAS CHANGED COMPLETED BY RN, THE STOMA HAS REDNESS AND THERES SEPARATION FROM STOMA TO THE SKIN, REFER TO CHARTING PATIENT WOUND REMAINS, REFER TO CHARTING LASIX WAS CHANGED FROM BID TO QD, ALBUMIN WAS DC'D PATIENT REMAINS OFF OF PRESSORS AND BLOOD PRESSURE SUSTAINING WELL PLATELET LEVEL LOWER THAN PRIOR AT 17,000. COMMUNICATED TO , AWARE. NUMEROUS TESTS ORDERED BY HEME/ONC TEAM. MIN TO MODERATE BLOOD FROM RECTUM NOTED, PROVIDERS AWARE OF BLEEDING PT'S DTR IN LAW WELL SEEN AT BEDSIDE TODAY, ALL PROCEDURES AND REASONING EXPLAINED BY RN, VERBALIZED CONTENT W/ CARE AT THIS TIME. CONTINUING TO MONITOR
[2021-06-20] VITALS (24 sets, daily range): BP systolic 95–156; BP diastolic 69–109
--- NOTE | 2021-06-20 06:00 | NUR ---
REMAINS INTUBATED AND SEDATED. BATHED MIDLINE ABD WOUND DRESSING SATURATED WITH PINKISH BROWN DRAINAGE. NOT PROGRESSING TOWARD GOALS REMAINS IN AFIB AMIO GTT .5 MG A VERY DELIGHTFUL GENTLEMAN WILL CONT TO MONITOR
[2021-06-20 07:26] LABS: HEMATOCRIT 23.1 % (42.0-52.0); RBC 2.44 mil/uL (4.50-6.00); WBC 4.2 thou/uL (4.0-11.0)
[2021-06-20 07:28] LABS: HEMOGLOBIN 7.3 gm/dL (14.0-18.0); MCH 29.8 pg (26.0-34.0); MCHC 31.4 g/dL (28.0-37.0); MCV 94.8 fL (80.0-100.0); RDW 18.5 % (10.5-14.5)
[2021-06-20 07:30] LABS: CALCIUM 8.3 mg/dL (8.5-10.1); CREATININE 1.3 mg/dL (0.7-1.3); POTASSIUM 5.6 mmol/L (3.5-5.1)
[2021-06-20 10:48] LABS: BE(vivo) 2.4 mmol/L (-2 to +3); HCO3 25.5 mmol/L (22.0-26.0); PCO2 33.7 mmHg (35.0-45.0); PO2 91.5 mmHg (80.0-100.0); pH 7.497 (7.360-7.450); sO2 97.6 % (92.0-98.0)
[2021-06-20 13:52] LABS: CALCIUM 8.3 mg/dL (8.5-10.1); CREATININE 1.4 mg/dL (0.7-1.3); POTASSIUM 5.3 mmol/L (3.5-5.1)
--- NOTE | 2021-06-20 18:29 | NUR ---
Patient progressing towards goal. This morning fentanyl and propofol was turned off, patient placed on CPAP trail followed by extubated at 1115. Patient transition from IV amio to PO per dobofff. Precedex still infusing. Minimial bleeding rectally/ostomy. Patient on 4 L NC, no concerns at this time.
--- NOTE | 2021-06-20 21:38 | NUR ---
ASSUMED CARE OF PATIENT AT 1900. DOBHOFF CLOGGED, UNABLE TO FLUSH. A ARTI WEISS NOTIFIED, ORDERS RECIEVED FOR IV MEDICATIONS. WILL DECIDE ON IR PLACEMENT OF DOBHOFF IN AM. PATIENT ASKED THIS RN TO CALL , SPOKE WITH HER AT 2129, UPDATED ON PATIENT CONDITION. SHE WILL BE HERE IN THE AM.
[2021-06-21] VITALS (30 sets, daily range): BP systolic 101–137; BP diastolic 75–102
--- NOTE | 2021-06-21 10:25 | NUR ---
WOUND CONSULT; THE PATIENT WAS EXTUBATED SUCCESSFULLY. THE ABDOMENAL WOUND IS MORE STABLE AND THE DRAINAGE IS MUCH LESS. THE PERIWOUND HAS IMPROVED. NO ACUTE ODOR. THE WOUND HAS SOME NON-VIABLE TISSUE. RECOMNNEDATIONS; CONTINUE CURRENT TREATMENT. DISCUSSED WITH ALVARO
[2021-06-21 13:40] LABS: HEMATOCRIT 25.8 % (42.0-52.0); HEMOGLOBIN 8.2 gm/dL (14.0-18.0); MCH 30.1 pg (26.0-34.0); MCHC 31.7 g/dL (28.0-37.0); MCV 95.1 fL (80.0-100.0); RBC 2.72 mil/uL (4.50-6.00); RDW 19.3 % (10.5-14.5); WBC 2.9 thou/uL (4.0-11.0)
[2021-06-21 13:54] LABS: CALCIUM 8.2 mg/dL (8.5-10.1); CREATININE 1.2 mg/dL (0.7-1.3); POTASSIUM 4.5 mmol/L (3.5-5.1)
--- NOTE | 2021-06-21 13:55 | NUR ---
CALLED IR AT 1350 SPOKE TO BRYCE WHO INFORMED ICU NURSE THAT THEY WILL RETURN OUR CALL REGARDING 242 DOBHOFF PLACEMENT. WILL CONTINUE TO FOLLOW UP.
--- NOTE | 2021-06-21 17:30 | NUR ---
INFORMED AND DAUGHTER WHO WERE AT BEDSIDE MOST THE DAY ABOUT PROGRESS IN PATIENT'S LAB RESULTS AND PLAN OF CARE AND TREATMENTS.
--- NOTE | 2021-06-21 18:44 | NUR ---
PT HAS PROGRESSED MARGINALLY TOWARDS D/C GOAL TODAY. HE HAS MAINTAINED OXYGENATION IN HIGH 90'S WITH HIGH FLOW NC AT 8LPM. PT PLT COUNT HAS ALSO INCREASED SINCE PREVIOUS LAB DRAW SHOWING SIGNS OF IMPROVEMENT. PT CONTINUES TO SHOW INCREASE IN PASSIVE ROM EXERCISES WELL. DOBHOFF WAS REMOVED THIS AFTERNOON DUE TO BEING KINKED, PLAN IS TO HAVE IR PLACE NEW DOBHOFF IN AM (06/22) TO START TUBE FEEDINGS, PT REMAINS NPO AT THIS TIME. HR HAS REMAINED STABLE IN THE 90-105 RANGE. HAVE TITRATED PRECEDEX DOWN FROM 1.4 TO 1 TODAY IT DID NOT APPEAR TO BENEFIT PATIENT, AND HE KEPT ASKING FOR PAIN MEDICATION. WILL CONTINUE TO FOLLOW POC.
[2021-06-22] VITALS (24 sets, daily range): BP systolic 105–140; BP diastolic 77–102
[2021-06-22 05:28] LABS: HEMATOCRIT 24.9 % (42.0-52.0); MCH 30.7 pg (26.0-34.0); MCHC 32.2 g/dL (28.0-37.0); MCV 95.3 fL (80.0-100.0); RBC 2.62 mil/uL (4.50-6.00); RDW 19.6 % (10.5-14.5); WBC 3.3 thou/uL (4.0-11.0)
[2021-06-22 05:37] LABS: CREATININE 1.2 mg/dL (0.7-1.3); POTASSIUM 4.3 mmol/L (3.5-5.1)
--- NOTE | 2021-06-22 07:19 | NUR ---
Patient is slowly progressing towards plan of care as evidenced by continued neurological presence. Patient tries to communicate by mouthing of words, and nodes to Y/N questions. Pt responded well to lowering of her NC O2 FROM 8L to 6L. Patient continues to c/o generalized pain. 2 doses of fentanyl was given during this shift.
--- NOTE | 2021-06-22 08:47 | NUR ---
PT IS IN NEED OF DOBHOFF PLACEMENT IN ORDER TO GET THE NEEDED NUTRITION THAT HE NEEDS. ORDER WAS PLACED ON 06-[address] DOBHOFF IN PATIENT DUE TO 2 PREVIOUS FAILED ATTEMPTS AT GETTING THE DOBHOFF TO WORK PROPERLY, DR. RODRIGUEZ RECOMMENED THAT IR BE CONSULTED FOR TUBE PLACEMENT. IR CONTACTED 06-21 WHO STATED THAT THEY CANNOT DO IT THAT AFTERNOON IT WILL HAVE BE DONE THE MORNING OF 06-22. HAVE CALLED IR REGARDING PATIENT GETTING PROCEDURE THIS MORNING (06/22) FIRST TIME BEING TOLD THERE WAS NO ORDER FOR IT, WHEN THERE IS IN AN ORDER IN THE COMPUTER. TOLD TO CONTACT X-RAY INSTEAD. CONTACTED X-RAY WHO STATED YOHANA MACHINE IS DOWN AND IR WILL NEED TO PLACE IT. HAVE ATTEMPTED TO CONTACT IR 3 TIMES NOW WITH NO ANSWER. WILL CONTINUE TO FOLLOW UP.
--- NOTE | 2021-06-22 09:52 | NUR ---
WOUND CARE F/U; THE PATIENTS DRAINAGE HAS DECREASED DRAMATICALLY. NO ODOR. A FAMILY MEMBER IS IN THE ROOM TO WHOM I EDUCATED ON WOUND CARE ISSUES AND ANSWERED ALL HIS QUESTIONS. THE PERIWOUND QUALITY IS GOOD. RECOMMENDATIONS; CONTINUE CURRENT TREATMENT. RN PRESENT AND ASSISTING.
--- NOTE | 2021-06-22 15:15 | NUR ---
Chart review. Discussed during unit rounds. was at bedside during rounds and left for little bit and is now back. O2 per nasal cannula. Cm visited with her outside the icu. No needs voiced. Will cont following as needed for dc needs.
--- NOTE | 2021-06-22 18:01 | NUR ---
PT STILL PROGRESSING SLOWLY TOWARDS D/C GOALS. PT HAD SUCCESSFUL DOBHOFF PLACEMENT TODAY VIA IR. TUBE FEEDINGS HAVE RESTARTED SLOWLY WITH A GOAL RATE OF 60ML/HR. PT SEEN BY OT TODAY WHERE HE RECIEVED A MASSAGE TO HELP DECREASE EDEMA THROUGHOUT THE BODY, PT STILL HAVING GOOD RESPONSE TO LASIX. PRECEDEX HAS BEEN TITRATED DOWN TO A CURRENT RATE OF 0.3 WITH HOPES OF D/C THE MEDICATION SOON. AMIO DRIP STILL RUNNING AT 0.5 AND PT RECEIEVING 5MG METOPROLOL Q6HR WITH GOOD RESPONSE. PT FAMILY AT BEDSIDE THROUGHOUT THE DAY. PT CURRENTLY RECEIVING IV DRIP MEDICATION CALLED [facility] TO HELP WITH PLT COUNT. PT BREATHING NORMALLY ON 4LPM NC. WILL CONTINUE TO FOLLOW POC.
[2021-06-23] VITALS (56 sets, daily range): BP systolic 95–163; BP diastolic 52–112
--- NOTE | 2021-06-23 01:27 | NUR ---
06/23/2021 : 0100. PATIENT BECAME AFIB 130S-140S, AND SPO2 DROPPED BELOW 90%. PATIENT WAS PLACED ON 15L NON-REBREATHER MASK BY THE RN. RESPITORY WAS NOTIFIED OF PT'S CONDITION. PT'S SPO2 DROPPED TO 85% AND SHE WAS PLACED ON BIPAP 100%. PATIENT WAS KEPT ON 100% BIPAP FOR 3 MINS AND HER SPO2 WENT UP TO 99%. BIPAP SETTING WAS LOWERD TO 60%. PT MAINTAINED SPO2 ABOVE 96%. DR. RODRIGUEZ WAS PAGED AND NOTIFIED ABOUT THE PATIENT'S CONDITION. NO ORDERS WAS RECEIVED. HE ASKED THIS RN TO CONTINUE KEEPING AN EYE ON THE PATIENT.
--- NOTE | 2021-06-23 07:33 | NUR ---
Pt is slowly progressing towards plan of care as evidenced by continous need of oxygen support to saturate above 95%. Pt was on 4LNC during change of shift last night. Pt was placed on BIPAP at 0100 after desaturating below 90%. Pt is currently afib 90s -100s.
[2021-06-23 08:57] LABS: HEMATOCRIT 29.7 % (42.0-52.0); HEMOGLOBIN 9.4 gm/dL (14.0-18.0); MCH 30.6 pg (26.0-34.0); MCHC 31.7 g/dL (28.0-37.0); MCV 96.6 fL (80.0-100.0); RBC 3.07 mil/uL (4.50-6.00); RDW 22.6 % (10.5-14.5); WBC 3.6 thou/uL (4.0-11.0)
[2021-06-23 09:18] LABS: ALBUMIN 2.5 g/dL (3.4-5.0); CREATININE 1.1 mg/dL (0.7-1.3); TOTAL BILIRUBIN 3.9 mg/dL (0.2-1.0); TOTAL PROTEIN 5.3 g/dL (6.4-8.2)
--- NOTE | 2021-06-23 11:30 | NUR ---
No anticipated dc over the weekend. Discuss during unit rounds. possible going for a bronch today. at bedside. Will cont. follow as needed for dc needs.
--- NOTE | 2021-06-23 12:02 | NUR ---
Bronchoscopy completed at 1201. Patient oxygenation remained 100% during proceedure. had previously talked with Dr. Cobb about the risks/benefits of the proceedure then signed consent. Time out performed prior. No extra sedation required, patient tolerated proceedure. Heart rate 136, RR 27, BP 129/87.
--- NOTE | 2021-06-23 20:02 | NUR ---
Patient not progressing towards plan of care as evidenced by continued need for bipap, and had bronchoscopy today for a mucous plug. updated throughout the day on patient status and progress.
[2021-06-24] VITALS (67 sets, daily range): BP systolic 87–147; BP diastolic 58–107
--- NOTE | 2021-06-24 02:01 | NUR ---
PT SWITCHED FROM 30% FI02 BIPAP TO NC 2L. TOLERATING AND SATTING 99% CALLED AND UPDATED ON STATUS.
[2021-06-24 05:44] LABS: HEMATOCRIT 31.6 % (42.0-52.0); HEMOGLOBIN 9.9 gm/dL (14.0-18.0); MCH 30.6 pg (26.0-34.0); MCHC 31.4 g/dL (28.0-37.0); MCV 97.5 fL (80.0-100.0); RBC 3.24 mil/uL (4.50-6.00); RDW 23.5 % (10.5-14.5); WBC 4.4 thou/uL (4.0-11.0)
[2021-06-24 05:55] LABS: CALCIUM 7.9 mg/dL (8.5-10.1); POTASSIUM 3.4 mmol/L (3.5-5.1)
[2021-06-25] VITALS (95 sets, daily range): BP systolic 76–133; BP diastolic 54–97
[2021-06-25 06:35] LABS: HEMATOCRIT 30.8 % (42.0-52.0); HEMOGLOBIN 9.5 gm/dL (14.0-18.0); MCH 30.4 pg (26.0-34.0); MCHC 30.9 g/dL (28.0-37.0); MCV 98.4 fL (80.0-100.0); RBC 3.13 mil/uL (4.50-6.00); RDW 23.3 % (10.5-14.5); WBC 4.9 thou/uL (4.0-11.0)
[2021-06-25 06:42] LABS: CALCIUM 7.9 mg/dL (8.5-10.1); CREATININE 0.9 mg/dL (0.7-1.3); POTASSIUM 3.6 mmol/L (3.5-5.1)
--- NOTE | 2021-06-25 10:25 | NUR ---
SPOKE TO JESUS JAMISON NP AT 1020 REGARDING PT'S INCREASE HYPOTENSION. NO ORDERS GIVEN AT THIS TIME. WE WILL CONTINUE TO MONITOR.
--- NOTE | 2021-06-25 14:38 | NUR ---
DURING ROUTINE REASSESSMENT OF PATIENT, IT APPEARS THAT PT HAS HAD A CHANGE IN MENTAL STATUS FROM THIS MORNING. PT NO LONGER OBEYING COMMANDS AND DOES NOT TRACK WITH THE EYES LIKE PREVIOUSLY DID. DR. RODRIGUEZ NOTIFIED AND TOLD TO GET STAT CT OF HEAD. WILL CONTINUE TO REASSESS AND MONITOR, FOLLOW POC.
[2021-06-26] VITALS (64 sets, daily range): BP systolic 86–130; BP diastolic 29–90
[2021-06-26 05:47] LABS: HEMOGLOBIN 8.3 gm/dL (14.0-18.0)
[2021-06-26 05:48] LABS: HEMATOCRIT 26.4 % (42.0-52.0); MCH 31.2 pg (26.0-34.0); MCHC 31.6 g/dL (28.0-37.0); MCV 98.6 fL (80.0-100.0); RBC 2.68 mil/uL (4.50-6.00); RDW 23.2 % (10.5-14.5); WBC 5.7 thou/uL (4.0-11.0)
[2021-06-26 05:57] LABS: CREATININE 0.9 mg/dL (0.7-1.3); POTASSIUM 3.7 mmol/L (3.5-5.1)
[2021-06-26 08:27] LABS: BE(vivo) 5.7 mmol/L (-2 to +3); HCO3 32.4 mmol/L (22.0-26.0); PCO2 60.3 mmHg (35.0-45.0); PO2 71.8 mmHg (80.0-100.0); pH 7.348 (7.360-7.450); sO2 93.3 % (92.0-98.0)
--- NOTE | 2021-06-26 11:39 | NUR ---
SW reviewed chart and spoke with nursing and attending physician. Pt remains in ICU. Pt on continuous bipap support. Pt had bronch on Saturday. Pt has dobhoff in place. SW met with pt and spouse at bedside. Discussion with pt's regarding plan of care. Pt's spouse states that last Saturday was their anniversary and last was pt's birthday. Pt's states that pt was tearful and she feels that he is depressed. Spiritual care is following and available as needed. Provided pt's with contact info for YUDY and discussed that discharge planning will be discussed as pt progresses. Pt's verbalized understanding. Work order entered due to the TV in the room not working. Pt's states it has not been working for the past couple of weeks. SW is following and is available to assist as needed with discharge planning.
--- NOTE | 2021-06-26 12:45 | NUR ---
WOUND CARE F/U; THE ABDOMENAL WOUND WAS THE ONLY WOUND ASSESSED DUE TO BREATHING DIFFICULTIES. THE WOUND HAS SOME BOWEL PROTRUDING FROM THE WOUND. THE RN STATES THAT THE SURGEON JUST ASSESSED THE WOUND. CONTINUE CURRENT TREAMENT. DISCUSSED WITH RN
[2021-06-27] VITALS (32 sets, daily range): BP systolic 85–121; BP diastolic 46–70
--- NOTE | 2021-06-27 09:01 | NUR ---
0730-DR. Burleson IN.--VW DR. MUSE IN. SON AT BEDSIDE.--VW
--- NOTE | 2021-06-27 10:44 | NUR ---
SW reviewed chart and spoke with nursing. Pt remains in ICU and continuous bipap support. Pt febrile this morning. Pt had a bronch yesterday. Palliative care consult ordered today to discuss code status and plan of care with pt's family. YUDY is following to assist as needed with discharge planning.
[2021-06-27 14:35] LABS: URINE BILIRUBIN NEGATIVE (Negative); URINE BLOOD 2+ (Negative); URINE CLARITY CLEAR; URINE COLOR YELLOW; URINE GLUCOSE-RANDOM* NEGATIVE (Negative); URINE KETONES NEGATIVE (Negative); URINE LEUKOCYTES NEGATIVE (Negative); URINE NITRITE NEGATIVE (Negative); URINE PROTEIN (DIPSTICK) TRACE (Negative); URINE SPECIFIC GRAVITY 1.015 (1.005-1.035); URINE UROBILINOGEN 0.2 E.U./dl (0.2-1.0)
[2021-06-27 15:02] LABS: SQUAMOUS 0-3 Few /LPF (0-3)
[2021-06-27 15:03] LABS: BACTERIA 1-9 Few /HPF (None Seen); URINE RBC 3-10 Few /HPF (NONE SEEN); URINE WBC 1-5 Rare /HPF (NONE SEEN)
[2021-06-27 16:19] LABS: HEMATOCRIT 22.7 % (42.0-52.0); HEMOGLOBIN 7.1 gm/dL (14.0-18.0); MCH 31.1 pg (26.0-34.0); MCHC 31.4 g/dL (28.0-37.0); MCV 99.2 fL (80.0-100.0); PLATELET COUNT 75 thou/uL (150-400); RBC 2.29 mil/uL (4.50-6.00); RDW 23.4 % (10.5-14.5); WBC 4.5 thou/uL (4.0-11.0)
[2021-06-27 16:59] LABS: CALCIUM 8.1 mg/dL (8.5-10.1); POTASSIUM 3.4 mmol/L (3.5-5.1); TOTAL BILIRUBIN 1.8 mg/dL (0.2-1.0)
[2021-06-27 17:30] LABS: ABSOLUTE NEUTROPHILS 4.1 thou/uL (1.4-8.2)
[2021-06-27 17:35] LABS: ANISOCYTOSIS 3+; MACROCYTES 1+; POLYCHROMASIA SLIGHT
[2021-06-27 17:36] LABS: HYPOCHROMASIA SLIGHT; LARGE PLATELETS FEW
[2021-06-28] VITALS (74 sets, daily range): BP systolic 73–142; BP diastolic 38–87
[2021-06-28 03:41] LABS: HEMATOCRIT 26.1 % (42.0-52.0); HEMOGLOBIN 8.1 gm/dL (14.0-18.0)
--- NOTE | 2021-06-28 10:00 | NUR ---
PT NOT RESPONSIVE AND NOT FOLLOWING COMMANDS. LOW SBP. STARTED LEVOPHED AND GAVE 250ml NS BOLUS PER DR. LEVINE. PT IS AFEBRILE. SON IS AT BEDSIDE. WILL CONTINUE TO MONITOR.
[2021-06-28 10:22] LABS: POTASSIUM 4.7 mmol/L (3.5-5.1)
[2021-06-28 10:23] LABS: BE(vivo) 4.9 mmol/L (-2 to +3); HCO3 35.3 mmol/L (22.0-26.0); PCO2 99.9 mmHg (35.0-45.0); pH 7.166 (7.360-7.450); sO2 95.5 % (92.0-98.0)
--- NOTE | 2021-06-28 10:58 | NUR ---
Family meeting 06/29/21 at 1530 in the [facility].
--- NOTE | 2021-06-28 13:08 | NUR ---
Per Dr. Harman, call placed to Renal Physician to okay new picc line placement for removal of current picc line. Want to know if okay for picc line vs central line placement. Page sent to Physician.
--- NOTE | 2021-06-28 13:31 | NUR ---
WOUND CARE F/U; THE ABDOMENAL WOUND IS RELATIVLY STABLE SINCE SATURDAY. THE PATIENTS OVERALL CONDITION HAS WORSENED BEING MECHANICALLY VENTILATED. THE PATIENT HAS A SACRAL WOUND THAT IS A SUPERFICIAL STAGE 2. NO ODOR. THE INTESTINES REMAIN VISIABLE IN THE WOUND BUT HAS NOT ADVANCED. RECOMMENDATIONS; -NO CHANGES AT THIS TIME. RN PRESENT.
[2021-06-28 14:00] LABS: BE(vivo) 5.1 mmol/L (-2 to +3); HCO3 34.5 mmol/L (22.0-26.0); PO2 65.3 mmHg (80.0-100.0); sO2 87.4 % (92.0-98.0)
[2021-06-28 14:02] LABS: PCO2 85.6 mmHg (35.0-45.0); pH 7.223 (7.360-7.450)
--- NOTE | 2021-06-28 15:45 | NUR ---
SW reviewed chart and spoke with nursing. Pt remains in ICU. Pt is on continuous bipap and has dobhoff in place. Pt had blood transfusion. Pt is on IV lasix, IV steroids and IV abx. Palliative care consulted. Family mtg scheduled for 1530 tomorrow in [facility] Conference room to discuss code status and plan of care. YUDY is following to assist as needed with discharge planning.
--- NOTE | 2021-06-28 17:41 | NUR ---
WANTED RT IJ REMOVED AND A NEW CL PLACED DUE TO POSITIVE BLOOD CX WITH NO CL HOLIDAY
--- NOTE | 2021-06-28 18:31 | NUR ---
PT IS NOT PROGRESSING TOWARDS CARE PLAN GOAL EVIDENCED BY INCREASING OXYGEN DEMANDS AND VASOPRESSORS. AND CHILDREN HAVE BEEN AT BEDSIDE WITH PT THROUGHOUT THE DAY. POSITIVE BLOOD CULUTRES NOTIFIED TO DR. HERRERA. RECEIVED NEW ORDERS. WILL CONTINUE TO MONITOR.
[2021-06-28 19:45] LABS: HCO3 36.6 mmol/L (22.0-26.0); PO2 136.8 mmHg (80.0-100.0); sO2 97.8 % (92.0-98.0)
[2021-06-28 19:46] LABS: PCO2 101.4 mmHg (35.0-45.0); pH 7.175 (7.360-7.450)
--- NOTE | 2021-06-28 20:08 | NUR ---
CRITICAL ON ABG'S. CALL PLACED TO DR. LEVINE VIA ANSWERING SERVICE. AWAITING CALL BACK.
[2021-06-28 23:46] LABS: BE(vivo) 9.7 mmol/L (-2 to +3); HCO3 36.6 mmol/L (22.0-26.0); PCO2 66.5 mmHg (35.0-45.0); pH 7.359 (7.360-7.450); sO2 98.9 % (92.0-98.0)
[2021-06-29] VITALS (58 sets, daily range): BP systolic 80–136; BP diastolic 50–94
[2021-06-29 04:55] LABS: BE(vivo) 6.8 mmol/L (-2 to +3); HCO3 31.7 mmol/L (22.0-26.0); PCO2 47.8 mmHg (35.0-45.0); PO2 124.2 mmHg (80.0-100.0); pH 7.439 (7.360-7.450); sO2 98.5 % (92.0-98.0)
[2021-06-29 05:40] LABS: HEMATOCRIT 24.7 % (42.0-52.0); MCH 31.8 pg (26.0-34.0); MCHC 32.2 g/dL (28.0-37.0); MCV 98.9 fL (80.0-100.0); PLATELET COUNT 67 thou/uL (150-400); RDW 21.8 % (10.5-14.5); WBC 5.3 thou/uL (4.0-11.0)
[2021-06-29 05:48] LABS: CALCIUM 8.3 mg/dL (8.5-10.1); CREATININE 1.1 mg/dL (0.7-1.3); POTASSIUM 4.4 mmol/L (3.5-5.1); TOTAL BILIRUBIN 1.6 mg/dL (0.2-1.0); TOTAL PROTEIN 4.9 g/dL (6.4-8.2)
[2021-06-29 06:26] LABS: OBSERVED RETIC COUNT 2.95 % (0.6-2.6)
--- NOTE | 2021-06-29 07:44 | NUR ---
DR. BOYKIN IN. HR AFIB UP TO 150'S-WILL CALL CV.--VW
[2021-06-29 10:31] LABS: ABSOLUTE NEUTROPHILS 5.1 thou/uL (1.4-8.2)
[2021-06-29 10:32] LABS: ANISOCYTOSIS 2+
--- NOTE | 2021-06-29 11:35 | NUR ---
YUDY reviewed chart and spoke with nursing. Family Meeting scheduled for 1530 this afternoon with pt's and three children. Pt remains a full code. Pt is on continuous bipap support. SW met with pt's at the bedside. Emotional support provided. YUDY explained the family meeting and that code status and plan of care will be discussed. Pt's states that she feels that pt's children need to know his prognosis and options for care at this time. YUDY is following to assist as needed with discharge planning.
--- NOTE | 2021-06-29 21:34 | NUR ---
UPON MY PATIENT ASSESSMENT AT 1931 I NOTICED THE PATIENTS PUPILS FOR UNEQUAL IN SIZE. THE LEFT WAS 2MM AND THE RIGHT EYE WAS 5MM. BOTH REACTIVE. FULL NEURO ASSESSMENT WAS DONE AND NO OTHER DEFICITS WERE FOUND. AT [address] BOYKIN WAS CALLED AND A NON CONTRAST HEAD CT WAS ORDERED. PT WAS TAKEN TO CT AND IT WAS COMPLETED. NO NEW FINDINGS WERE FOUND AND NO NEW ORDERS FROM THE DR WAS GIVEN TO NURSE. WILL CONTINUE TO MONITOR.
[2021-06-30] VITALS (50 sets, daily range): BP systolic 87–127; BP diastolic 56–91
[2021-06-30 08:07] LABS: PLATELET COUNT 66 thou/uL (150-400); WBC 4.6 thou/uL (4.0-11.0)
[2021-06-30 08:10] LABS: HEMATOCRIT 21.6 % (42.0-52.0); MCH 31.2 pg (26.0-34.0); MCHC 32.3 g/dL (28.0-37.0); MCV 96.7 fL (80.0-100.0); RBC 2.23 mil/uL (4.50-6.00); RDW 22.3 % (10.5-14.5)
[2021-06-30 08:15] LABS: CALCIUM 8.2 mg/dL (8.5-10.1); CREATININE 1.1 mg/dL (0.7-1.3)
--- NOTE | 2021-06-30 10:33 | NUR ---
WOUND CARE F/U; I AM HERE TODAY TO ASSESS THE SACRUM ONLY. THE SACRUM IS ALMOST HEALED. ITS DRAMATICALLY IMPROVED MEASURES ONLY 0.2 X 0.2 X 0.1. NO S/S OF INFECTION. RECOMMENDATIONS: -CONTINUE CURRENT WOUND CARE ORDERS. RN PRESENT.
[2021-06-30 11:35] LABS: ABSOLUTE NEUTROPHILS 4.1 thou/uL (1.4-8.2); ANISOCYTOSIS 2+; HYPOCHROMASIA SLIGHT; METAMYELOCYTES 3 %; NUCLEATED RBCS 1 /100WBC; OVALOCYTES OCCASIONAL; PLATELET ESTIMATE DECREASED; POIKILOCYTOSIS SLIGHT
--- NOTE | 2021-06-30 11:53 | NUR ---
SW reviewed chart and spoke with nursing. Pt remains in ICU. Pt is on continuous bipap and has dobhoff in place. Pt had head CT overnight. Family meeting held yesterday afternoon with palliative care RN and pt's and pt's three children. Pt's code status changed to DNR. Pt's family to discuss plan of care. No weekend discharge planned. YUDY is following and is available to assist should needs arise.
--- NOTE | 2021-06-30 20:26 | NUR ---
PATIENT NOT PROGRESSING TOWARDS GOALS EVIDENCED BY NONRESPONSIVE TO VERBAL STIMULI AND REQUIRING MEDS TO CONTROL HR/AFIB RVR. PATIENT ABD DRESSING CHANGED TODAY WITH LOTS OF DRAINAGE NOTED ON DRESSING. PATIENT GIVEN AMIO BOLUS AND Q6H AMIO GTT STARTED PER ORDERS GIVEN. DOBBHOFF AT 76 AND ADVANCED TO 80 - ORIGINAL POSITION 85 CM WTIH KUB ORDERED AND RESULTED SHOWING DOBBHOFF PLACEMENT IN [facility].
[2021-07-01] VITALS (52 sets, daily range): BP systolic 97–121; BP diastolic 64–88
[2021-07-01 06:00] LABS: HEMATOCRIT 21.4 % (42.0-52.0); RBC 2.19 mil/uL (4.50-6.00)
[2021-07-01 06:02] LABS: ABSOLUTE NEUTROPHILS 5.2 thou/uL (1.4-8.2); BASOPHILS 0.2 % (0.0-2.0); HEMOGLOBIN 6.8 gm/dL (14.0-18.0); LYMPHOCYTES 0.8 % (24.0-44.0); MCH 31.3 pg (26.0-34.0); MCHC 31.9 g/dL (28.0-37.0); MCV 98.1 fL (80.0-100.0); MONOCYTES 2.7 % (1.0-8.0); PLATELET COUNT 64 thou/uL (150-400); POLYS 96.3 % (36.0-66.0); RDW 21.6 % (10.5-14.5); WBC 5.4 thou/uL (4.0-11.0)
--- NOTE | 2021-07-01 11:34 | EKG ---
[place] [address] [facility] [place] [address] ELECTROCARDIOGRAM REPORT Name: ASHLEY PINTO Room #: 242-P ADM IN M.R.#: [id number] Admission: 06/01/21 Attend Phys: Adrián Gay MD Discharge: Date of : 41 Report #: [id number] [facility] Test Date: 2021-07-01 Test Time: 07:50:23 Pat Name: ASHLEY PINTO Department: Room: 242 P Gender: M Is Technician: : 1945 Requested By: Adan Luna Order Number: [id number] MD: Adan Luna Measurements Intervals [place] Rate: 113 P: AR: QRS: 13 QRSD: 76 T: 168 QT: 391 QTc: 537 Interpretive Statements Atrial fibrillation Nonspecific T abnormalities, diffuse leads Prolonged QT interval Compared to ECG 06/08/2021 04:12:19 T-wave abnormality now present Prolonged QT interval now present Atrial fibrillation rates have slowed Electronically Signed On 07-01-2021 11:34:32 CDT by Adan Luna [email or web address] <ELECTRONICALLY SIGNED> By: Adan Luna MD, [facility] 07/01/21 1134 0750 0750 Adan Luna MD, [facility] /EPI
--- NOTE | 2021-07-01 19:53 | NUR ---
PATIENT STILL NOT RESPONDING TO COMMANDS OR VERBAL STIMULI. FAMILY MEMBERS WERE AT THE BEDSIDE MOST OF THE DAY AND WERE UPDATED REGARDING PATIENT CARE AND TREATMENT. 1 UNIT OF BLOOD WAS GIVEN PER DR. BOYKIN FOR HEMOGLOBIN LESS THAN 7. AMIO GTT CONTINUES TO RUN FOR SUPPORT OF HR/AFIB. MIDLINE DRESSING WAS CHANGED ONCE TODAY DUE TO SATURATION. URINE OUTPUT IS ADEQUATE AND PT IS TOLERATING TUBE FEEDINGS.
[2021-07-02] VITALS (49 sets, daily range): BP systolic 101–123; BP diastolic 63–82
[2021-07-02 06:32] LABS: ALBUMIN 2.9 g/dL (3.4-5.0); CREATININE 0.9 mg/dL (0.7-1.3); POTASSIUM 4.5 mmol/L (3.5-5.1); TOTAL BILIRUBIN 1.7 mg/dL (0.2-1.0); TOTAL PROTEIN 4.4 g/dL (6.4-8.2)
[2021-07-02 08:31] LABS: HEMATOCRIT 25.5 % (42.0-52.0); HEMOGLOBIN 8.2 gm/dL (14.0-18.0); MCH 31.3 pg (26.0-34.0); MCHC 32.1 g/dL (28.0-37.0); MCV 97.6 fL (80.0-100.0); RBC 2.62 mil/uL (4.50-6.00); RDW 20.3 % (10.5-14.5); WBC 6.6 thou/uL (4.0-11.0)
[2021-07-02 08:32] LABS: PLATELET COUNT 63 thou/uL (150-400)
[2021-07-02 08:53] LABS: ABSOLUTE NEUTROPHILS 6.3 thou/uL (1.4-8.2); NUCLEATED RBCS 1 /100WBC
[2021-07-02 08:54] LABS: ANISOCYTOSIS 2+
[2021-07-03] VITALS (48 sets, daily range): BP systolic 109–142; BP diastolic 61–84
[2021-07-03 04:43] LABS: HEMATOCRIT 23.7 % (42.0-52.0); HEMOGLOBIN 7.6 gm/dL (14.0-18.0); MCH 31.6 pg (26.0-34.0); MCHC 32.2 g/dL (28.0-37.0); PLATELET COUNT 57 thou/uL (150-400); RBC 2.42 mil/uL (4.50-6.00); RDW 19.8 % (10.5-14.5)
[2021-07-03 05:13] LABS: ABSOLUTE NEUTROPHILS 6.8 thou/uL (1.4-8.2); ANISOCYTOSIS 2+; MYELOCYTES 1 %
[2021-07-03 05:14] LABS: PLATELET ESTIMATE DECREASED; TOXIC GRANULATION 2+
--- NOTE | 2021-07-03 08:00 | NUR ---
VARIANCE NOTE: PT HAS CONTINUED TO HAVE INCREASED OXYGEN NEEDS AND DECLINE IN MEDICAL STATUS. WILL PLACE PT ON HOLD AT THIS TIME. PLEASE RE-ORDER O.T. IF PT MEDICAL STATUS IMPROVES AND PT ABLE TO PARTICIPATE IN O.T. THANK YOU.
--- NOTE | 2021-07-03 11:23 | NUR ---
SW reviewed chart and spoke with nursing. Pt remains in ICU. Pt is on face mask at 40% and will use bipap at HS. Pt is on IV meds. Dobhoff in place for nutrition. No family present at bedside. Pt is a DNR. Awaiting input from family regarding plan of care. SW is following and is available to assist as needed with discharge planning.
--- NOTE | 2021-07-03 13:02 | NUR ---
WOUND F/U; THE ABDOMEINAL WOUND IS STILL DRAINING CONSIDERABLE DRAINAGE BUT WE ARE ABLE TO MANAGE WITH BIOBURDEN WITH AQUACEL AG AND DRAWTEX. NO ODOR OR PAIN. THE INTESTINES ARE PRESENT IN THE WOUND. THE SURGEON IS AWARE AND SAYS "THERE IS NOTHING MORE TO OFFER THIS PATIENT" THERE IS NO ODOR OR SSIGNS OF PAIN. NO CHANGES AT THIS TIME.
--- NOTE | 2021-07-03 22:28 | NUR ---
PT HAD 9 BEAT RUN OF V TACH AT AROUND 1815. CARDIO WAS PAGED ON DAY SHIFT AND RETURNED PAGE AT AROUND 1999. WAS INFORMED OF RUN OF V TACH NO NEW ORDERS.
[2021-07-04] VITALS (15 sets, daily range): BP systolic 102–153; BP diastolic 54–72
[2021-07-04 06:29] LABS: HEMOGLOBIN 7.4 gm/dL (14.0-18.0); MCHC 32.1 g/dL (28.0-37.0); MCV 99.6 fL (80.0-100.0); PLATELET COUNT 60 thou/uL (150-400); RBC 2.31 mil/uL (4.50-6.00); RDW 20.6 % (10.5-14.5); WBC 9.1 thou/uL (4.0-11.0)
[2021-07-04 06:45] LABS: ALBUMIN 2.9 g/dL (3.4-5.0); CALCIUM 8.1 mg/dL (8.5-10.1); CREATININE 0.9 mg/dL (0.7-1.3); POTASSIUM 5.3 mmol/L (3.5-5.1); TOTAL BILIRUBIN 1.7 mg/dL (0.2-1.0); TOTAL PROTEIN 4.5 g/dL (6.4-8.2)
--- NOTE | 2021-07-04 06:51 | NUR ---
PROGRESS NOTE FOR SHIFT OCCURED FROM 0700 - 1900 07/03/21: PT NOT PROGRESSING TOWARDS DISCHARGE AT THIS TIME, AT THE TIME OF RN'S ARRIVAL PT WAS MORE AWARE AND HAD CONVERTED FROM AFIB TO SR. PT'S MOUTH IS DROPPED OPEN, AND ABLE TO CLOSE FOR BRIEF MOMENTS W/ EFFORT BUT FOR THE MAJORITY OF THE SHIFT, GAPED OPEN DUE TO MUSCLE ATROPHY. SUBSEQUENTLY, PT'S MOUTH IS EXTREMELY DRY AND CRACKING DUE TO ADJUNCT/NECESSARY AIR SUPPORT. RN PROVIDED ORAL CARE FREQUENTLY USING AMPLE AMOUNT OF MOUTH MOISTURIZER. WHEN PT'S MOUTH WAS MOISTURIZED PT WOULD MAKE GREATER EFFORT TO COMMUNICATE W/ THE STAFF AND FAMILY W/ LITTLE TO NO SUCCESS. AT THE END OF THE SHIFT PT'S HAD CALLED THE SW DISTURBED/UPSET WHEN RN APPROACHED THE SHE HAD STATED THAT PT EXPRESSED THAT HE WANTED THE MASK OFF AND WANTED TO , FIRST TIME PT VERBALIZING THAT TO THE . WAS CONCERNED THAT PATIENT DID NOT WANT TO CONVEY THIS TO THE CHILDREN BUT HE HAD SAID IT AND SOMETHING MUST BE DONE. RN ESCLATED THIS TO THE GERONTOLOGY GEODETIC ENGINEER, ATTEMPTED TO CALL WELL. GERONTOLOGY GEODETIC ENGINEER STATED THAT SHE WILL HAVE A MEETING WITH FAMILY THE MORNING OF 07/04/21
[2021-07-04 06:58] LABS: ABSOLUTE NEUTROPHILS 8.7 thou/uL (1.4-8.2)
[2021-07-04 06:59] LABS: ANISOCYTOSIS 2+; PLATELET ESTIMATE DECREASED; POIKILOCYTOSIS 1+
--- NOTE | 2021-07-04 07:52 | NUR ---
Pt CONTINUES TO HAVE INCREASED O2 NEEDS AND DECREASED MEDICAL STATUS. WILL PLACE ON HOLD AND AWAIT NEW ORDERS WHEN APPROPRIATE
--- NOTE | 2021-07-04 09:25 | NUR ---
THIS RECEPTION MANAGER WAS PAGED AT 0820 HOURS REGARDING THE OF THE PATIENT. tHE RECEPTION MANAGER SUPORTED THE FAMILY AND ANSWERED QUESTIONS. WE HAD A TIME OF PRAYER REMEMBERING THE PATIENT. 0903 HOURS. THIS RECEPTION MANAGER WAS ASKED BY , BRUNO, TO NOTIFY THEIR METHODIST OF HIS . NO REQUESTS OF THE METHODIST AT THIS TIME. THE FAMLY IS NOT SURE WHAT PLANS WILL BE MADE AT THIS TIME.
--- NOTE | 2021-07-04 10:13 | NUR ---
RN ARRIVED TO THE UNIT WAS REPORTED THAT PT WAS ON THE BIPAP OVER NIGHT, WAS ABLE TO GO BACK TO THE [facility] AROUND 0400, SEEN TO DESAT TO 70s WAS PLACED BACK ON THE BIPAP AT 0600 AND HAS BEEN ON SINCE. PT AT THE TIME OF RN'S ARRIVAL HR WAS AT 70s, PT HAS BEEN MAINTAINING, AROUND 0720 PT'S HR DROPPED TO 50s W/ SPO2 DROPPING TO LOW 80s, SEEN APPROACHING THE UNIT, RN NOTIFIED THE VIA CALL TO COME TO THE HOSPITAL RIGHT AWAY. WAS TOLD THAT SHE LIVED 45 MINUTES AWAY. ON THE UNIT. PT CONTINUING TO DECOMPENSATE. ALL APPROPERIATE MEASURES TAKEN W/ 2 MDs AT BEDSIDE, PT CONTINUED TO DECLINE. TIME OF CALLED BY AT 0745, 3 RNs WITNESSED. FAMILY AT BEDSIDE NOW WITH THE . RN ASSISTING W/ POST-MORTEM PROCESSES APPROPERIATE.
--- NOTE | 2021-07-04 11:50 | NUR ---
SW reviewed chart and spoke with nursing. Pt this morning at 0745. Pt's family at the bedside following pt's passing. SW is available to assist should needs arise.
== END 2021-07-04 07:45 | DRG 853 ==
LOC: ER 12:13 → EROBS 14:32 → ICU 14:32 → 4S 14:32 → ICU 06-06 02:35
PROVIDERS: Emergency Medicine; Hospitalist; Internal Medicine; Internal Medicine Hematology & Oncology; Internal Medicine Pulmonary Disease; Nurse Practitioner; Nurse Practitioner Adult Health; Pediatrics; Specialist; Surgery; ADMIT Family Medicine; ATTEND Family Medicine
PROC: 03HY32Z Insertion of Monitoring Device into Upper Artery, Percutaneous Approach (ICD-10-PCS; principal; 2021-06-06)
PROC: 30233R1 Transfusion of Nonautologous Platelets into Peripheral Vein, Percutaneous Approach (ICD-10-PCS; principal; 2021-06-06)
PROC: 30233N1 Transfusion of Nonautologous Red Blood Cells into Peripheral Vein, Percutaneous Approach (ICD-10-PCS; principal; 2021-06-06)
PROC: 0D1N0Z4 Bypass Sigmoid Colon to Cutaneous, Open Approach (ICD-10-PCS; principal; 2021-06-06)
PROC: 0DBN0ZZ Excision of Sigmoid Colon, Open Approach (ICD-10-PCS; principal; 2021-06-06)
PROC: 5A0935A Assistance with Respiratory Ventilation, Less than 24 Consecutive Hours, High Flow/Velocity Cannula (ICD-10-PCS; principal; 2021-06-06)
PROC: 5A09357 Assistance with Respiratory Ventilation, Less than 24 Consecutive Hours, Continuous Positive Airway Pressure (ICD-10-PCS; principal; 2021-06-06)
PROC: 0BC78ZZ Extirpation of Matter from Left Main Bronchus, Via Natural or Artificial Opening Endoscopic (ICD-10-PCS; 2021-06-09)
PROC: 0BC78ZZ Extirpation of Matter from Left Main Bronchus, Via Natural or Artificial Opening Endoscopic (ICD-10-PCS; 2021-06-10)
PROC: 0BCB8ZZ Extirpation of Matter from Left Lower Lobe Bronchus, Via Natural or Artificial Opening Endoscopic (ICD-10-PCS; 2021-06-10)
PROC: 0BC88ZZ Extirpation of Matter from Left Upper Lobe Bronchus, Via Natural or Artificial Opening Endoscopic (ICD-10-PCS; 2021-06-10)
PROC: 0BH17EZ Insertion of Endotracheal Airway into Trachea, Via Natural or Artificial Opening (ICD-10-PCS; 2021-06-11)
PROC: 5A1955Z Respiratory Ventilation, Greater than 96 Consecutive Hours (ICD-10-PCS; 2021-06-11)
PROC: 5A0935A Assistance with Respiratory Ventilation, Less than 24 Consecutive Hours, High Flow/Velocity Cannula (ICD-10-PCS; 2021-06-11)
PROC: 5A0935A Assistance with Respiratory Ventilation, Less than 24 Consecutive Hours, High Flow/Velocity Cannula (ICD-10-PCS; 2021-06-21)
PROC: 0DH67UZ Insertion of Feeding Device into Stomach, Via Natural or Artificial Opening (ICD-10-PCS; 2021-06-22)
PROC: 5A09357 Assistance with Respiratory Ventilation, Less than 24 Consecutive Hours, Continuous Positive Airway Pressure (ICD-10-PCS; 2021-06-23)
PROC: 0BC78ZZ Extirpation of Matter from Left Main Bronchus, Via Natural or Artificial Opening Endoscopic (ICD-10-PCS; 2021-06-23)
PROC: 5A09357 Assistance with Respiratory Ventilation, Less than 24 Consecutive Hours, Continuous Positive Airway Pressure (ICD-10-PCS; 2021-06-24)
PROC: 5A0935A Assistance with Respiratory Ventilation, Less than 24 Consecutive Hours, High Flow/Velocity Cannula (ICD-10-PCS; 2021-06-24)
PROC: 5A09557 Assistance with Respiratory Ventilation, Greater than 96 Consecutive Hours, Continuous Positive Airway Pressure (ICD-10-PCS; 2021-06-25)
PROC: 02H633Z Insertion of Infusion Device into Right Atrium, Percutaneous Approach (ICD-10-PCS; 2021-06-25)
PROC: 0B9J8ZX Drainage of Left Lower Lung Lobe, Via Natural or Artificial Opening Endoscopic, Diagnostic (ICD-10-PCS; 2021-06-26)
PROC: 5A09357 Assistance with Respiratory Ventilation, Less than 24 Consecutive Hours, Continuous Positive Airway Pressure (ICD-10-PCS; 2021-07-03)
DX: A41.81 Sepsis due to Enterococcus (principal); E43 Unspecified severe protein-calorie malnutrition; R65.21 Severe sepsis with septic shock; K65.8 Other peritonitis; K57.21 Diverticulitis of large intestine with perforation and abscess with bleeding; J96.21 Acute and chronic respiratory failure with hypoxia; N17.9 Acute kidney failure, unspecified; K51.90 Ulcerative colitis, unspecified, without complications; T17.590A Other foreign object in bronchus causing asphyxiation, initial encounter; J98.11 Atelectasis; D62 Acute posthemorrhagic anemia; E87.0 Hyperosmolality and hypernatremia; G93.40 Encephalopathy, unspecified; D68.59 Other primary thrombophilia; F41.9 Anxiety disorder, unspecified; Z66 Do not resuscitate; Z20.822 Contact with and (suspected) exposure to COVID-19; I10 Essential (primary) hypertension; E78.00 Pure hypercholesterolemia, unspecified; I95.9 Hypotension, unspecified; K21.9 Gastro-esophageal reflux disease without esophagitis; D69.6 Thrombocytopenia, unspecified; E78.5 Hyperlipidemia, unspecified; E88.09 Other disorders of plasma-protein metabolism, not elsewhere classified; E87.6 Hypokalemia; R53.81 Other malaise; X58.XXXA Exposure to other specified factors, initial encounter; Y93.89 Activity, other specified; Y92.89 Other specified places as the place of occurrence of the external cause; Y99.8 Other external cause status; Z23 Encounter for immunization; Z87.891 Personal history of nicotine dependence; Z82.49 Family history of ischemic heart disease and other diseases of the circulatory system; Z68.31 Body mass index [BMI] 31.0-31.9, adult
CPT/HCPCS: 10102; 10204; 50093; 50101; 50290; 50386; 51412; 51708; 51712; 56526; 56527; 57092; 57103; 62110; 62900; 65040; 70005; 85026; 85076